=== PATIENT | male | born 1975 | race Caucasian/White ===

== ENCOUNTER 2017-07-10 11:35 | Emergency (ER) | payer BC, OTHER ==
[~2017-07-10] VITALS: Ht 185.4 cm; Wt 137.7 kg
[2017-07-10 11:39] VITALS: TEMP 36.4; Ht 185.4 cm; Wt 137.7 kg
[2017-07-10 12:03] VITALS: O2SAT 96
[2017-07-10] MEDS ORDERED: SODIUM CHLORIDE 0.9% 1000ML 1,000 ML IV STA (12:29)
[2017-07-10] MEDS ORDERED: MoRPHine SULFATE 10 MG/ML CARP/VIAL IV STA (12:29)
[2017-07-10] MEDS ORDERED: ONDANSETRON INJ 2 MG/ML 2 ML VIAL IV STA (12:29)
[2017-07-10] MEDS ORDERED: OPTIRAY 320 IV PRN (12:45)
[2017-07-10 12:51] LABS: BASO % 0.2 %; BASO ABS # 0.03 K/uL (0-0.2); EOS ABS # 0.14 K/uL (0-0.5); HEMATOCRIT 51.2 % (42-52); HEMOGLOBIN 17.7 g/dL (14.0-18.0); IG# 0.05 K/uL (0.00-0.02); LYMPH % 15.3 %; MEAN CELL VOLUME 88.1 fL (80-100); MEAN CORPUSCULAR HEMOGLOBIN 30.5 pg (25-34); MEAN CORPUSCULAR HGB CONC 34.6 g/dl (32-36); MEAN PLATELET VOLUME 10.9 fL (7.4-10.4); MONO % 6.5 %; NEUT % 76.6 %; NEUT ABS # 10.54 K/uL (1.4-6.5); PLATELET COUNT 259 K/uL (130-400); RED CELL DISTRIBUTION WIDTH CV 13.1 % (11.5-14.5); RED CELL DISTRIBUTION WIDTH SD 42.4 fL (36.4-46.3); WHITE BLOOD COUNT 13.76 K/uL (4.8-10.8)
[2017-07-10 13:12] LABS: ALT/SGPT 37 U/L (12-78); BLOOD UREA NITROGEN 16 mg/dl (7-18); CARBON DIOXIDE 27 mmol/L (21-32); CREATININE 0.99 mg/dl (0.60-1.40); GLUCOSE 118 mg/dl (70-99); LIPASE 127 U/L (73-393); POTASSIUM 4.2 mmol/L (3.5-5.1); SODIUM 139 mmol/L (136-145)
[2017-07-10 13:14] LABS: ALKALINE PHOSPHATASE 89 U/L (45-117); AST/SGOT 16 U/L (15-37); TOTAL PROTEIN 7.6 gm/dl (6.4-8.2)
--- NOTE | 2017-07-10 13:48 | DIAGNOSTIC IMAGING REPORT ---
ABD/PELVIS IV CONTRAST ONLY CT DOSE: 2037.64 mGy.cm HISTORY: Pain abd pain in epigastric / diffuse TECHNIQUE: Multiaxial CT images of the abdomen and pelvis were performed following the use of intravenous contrast. A dose lowering technique was utilized adhering to the principles of ALARA. COMPARISON STUDY: 03/12/2008 FINDINGS: The lung bases are clear. The liver, spleen, gallbladder, pancreas, kidneys, and adrenal glands are within normal limits. No bowel wall thickening or obstruction. The pelvic organs are unremarkable. No suspicious lytic or blastic osseous lesions. IMPRESSION: No significant abnormality identified within the abdomen or pelvis. Normal appendix. Nonobstructive bowel pattern The above report was generated using voice recognition software. It may contain grammatical, syntax or spelling errors. Electronically signed by: Yang Clayton M.D. 07/10/2017 1:46 PM Dictated Date/Time: 07/10/2017 1:40 PM
[2017-07-10 16:00] VITALS: BP 151/97; PULSE 62; O2SAT 96
--- NOTE | 2017-07-10 18:09 | EMERGENCY ROOM VISIT NOTE ---
History Report prepared by Gaby: Umm Gan Under the Supervision of: Dr. Mino Valenzuela D.O. First contact with patient: 12:21 Chief Complaint: ABDOMINAL PAIN Stated Complaint: STOMACHE PAIN, BACK PAIN Nursing Triage Summary: Patient presents ambulatory to triage with c/o abdominal pain that began last night States he was at work around 0400 with onset of symptoms C/o upper abdominal pain that radiates to midsternum and back Denies vomiting, diarrhea, nausea History of Present Illness The patient is a 42 year old male who presents to the Emergency Room with complaints of persistent upper abdominal pain starting 0400. He describes the pain as sharp. He currently rates his discomfort as a 5-6/10 in severity. The pain goes into his back. He has never had this pain before. No other exacerbating or remitting factors. He does admit to nausea associated with the pain. No vomiting. No previous abdominal surgeries. He denies any cough, rhinorrhea, chest pain, or headache. He denies any previous abdominal surgeries. He has a history of kidney stone. Source of History: patient Onset: 0400 Position: abdomen (upper) Symptom Intensity: 5-6/10 Quality: sharp Timing: other (persistent) Associated Symptoms: + back pain, No headache, No cough, No chest pain Review of Systems See HPI for pertinent positives & negatives. A total of 10 systems reviewed and were otherwise negative. Past Medical & Surgical Medical Problems: (1) Kidney stone Family History Cancer Social History Smoking Status: Current Some Day Smoker Marital Status: Occupation Status: employed Current/Historical Medications No Active Prescriptions or Reported Meds Allergies Coded Allergies: No Known Allergies (Unverified , 07/10/17) Physical Exam Vital Signs Date Time Temp Pulse Resp B/P (MAP) Pulse Ox O2 Delivery O2 Flow Rate FiO2 07/10/17 16:00 62 16 151/97 96 07/10/17 15:02 60 20 152/97 94 Room Air 07/10/17 13:42 72 16 167/84 97 Room Air 07/10/17 12:09 61 07/10/17 12:05 59 18 165/93 96 Room Air 07/10/17 12:03 96 Room Air 07/10/17 11:39 36.4 59 16 196/115 97 Room Air Physical Exam GENERAL: Sitting up in bed, holding epigastric area, no distress, non-toxic EYE EXAM: normal conjunctiva. OROPHARYNX: no exudate, no erythema, lips, buccal mucosa, and tongue normal and mucous membranes are moist NECK: supple, no nuchal rigidity, no adenopathy, non-tender LUNGS: Clear to auscultation. Normal chest wall mechanics HEART: no murmurs, S1 normal and S2 normal ABDOMEN: abdomen soft, tenderness to palpation in the periumbilical area, normo- active bowel sounds, no masses, no rebound or guarding. BACK: Back is symmetrical on inspection and there is no deformity, no midline tenderness, no CVA tenderness. SKIN: no rashes and no bruising UPPER EXTREMITIES: upper extremities are grossly normal. LOWER EXTREMITIES: No pitting edema. NEURO EXAM: Normal sensorium, cranial nerves II-XII grossly intact, normal speech, no gross weakness of arms, no gross weakness of legs. Medical Decision & Procedures ER Provider Diagnostic Interpretation: Radiology results as stated below per my review and the radiologist's interpretation: ABD/PELVIS IV CONTRAST ONLY CT DOSE: 2037.64 mGy.cm HISTORY: Pain abd pain in epigastric / diffuse TECHNIQUE: Multiaxial CT images of the abdomen and pelvis were performed following the use of intravenous contrast. A dose lowering technique was utilized adhering to the principles of ALARA. COMPARISON STUDY: 03/12/2008 FINDINGS: The lung bases are clear. The liver, spleen, gallbladder, pancreas, kidneys, and adrenal glands are within normal limits. No bowel wall thickening or obstruction. The pelvic organs are unremarkable. No suspicious lytic or blastic osseous lesions. IMPRESSION: No significant abnormality identified within the abdomen or pelvis. Normal appendix. Nonobstructive bowel pattern The above report was generated using voice recognition software. It may contain grammatical, syntax or spelling errors. Electronically signed by: Yang Clayton M.D. 07/10/2017 1:46 PM Dictated Date/Time: 07/10/2017 1:40 PM Laboratory Results 07/10/17 12:01 Red Blood Count 5.81, Mean Corpuscular Volume 88.1, Mean Corpuscular Hemoglobin 30.5, Mean Corpuscular Hemoglobin Concent 34.6, Mean Platelet Volume 10.9, Neutrophils (%) (Auto) 76.6, Lymphocytes (%) (Auto) 15.3, Monocytes (%) (Auto) 6.5, Eosinophils (%) (Auto) 1.0, Basophils (%) (Auto) 0.2, Neutrophils # (Auto) 10.54, Lymphocytes # (Auto) 2.10, Monocytes # (Auto) 0.90, Eosinophils # (Auto) 0.14, Basophils # (Auto) 0.03 07/10/17 12:01 Test 07/10/17 12:01 White Blood Count 13.76 K/uL (4.8-10.8) Red Blood Count 5.81 M/uL (4.7-6.1) Hemoglobin 17.7 g/dL (14.0-18.0) Hematocrit 51.2 % (42-52) Mean Corpuscular Volume 88.1 fL (80-100) Mean Corpuscular Hemoglobin 30.5 pg (25-34) Mean Corpuscular Hemoglobin Concent 34.6 g/dl (32-36) Platelet Count 259 K/uL (130-400) Mean Platelet Volume 10.9 fL (7.4-10.4) Neutrophils (%) (Auto) 76.6 % Lymphocytes (%) (Auto) 15.3 % Monocytes (%) (Auto) 6.5 % Eosinophils (%) (Auto) 1.0 % Basophils (%) (Auto) 0.2 % Neutrophils # (Auto) 10.54 K/uL (1.4-6.5) Lymphocytes # (Auto) 2.10 K/uL (1.2-3.4) Monocytes # (Auto) 0.90 K/uL (0.11-0.59) Eosinophils # (Auto) 0.14 K/uL (0-0.5) Basophils # (Auto) 0.03 K/uL (0-0.2) RDW Standard Deviation 42.4 fL (36.4-46.3) RDW Coefficient of Variation 13.1 % (11.5-14.5) Immature Granulocyte % (Auto) 0.4 % Immature Granulocyte # (Auto) 0.05 K/uL (0.00-0.02) Anion Gap 6.0 mmol/L (3-11) Est Creatinine Clear Calc Drug Dose 138.7 ml/min Estimated GFR () 106.9 Estimated GFR (Non- 92.2 BUN/Creatinine Ratio 16.4 (10-20) Calcium Level 9.0 mg/dl (8.5-10.1) Total Bilirubin 0.4 mg/dl (0.2-1) Direct Bilirubin < 0.1 mg/dl (0-0.2) Aspartate Amino Transf (AST/SGOT) 16 U/L (15-37) Alanine Aminotransferase (ALT/SGPT) 37 U/L (12-78) Alkaline Phosphatase 89 U/L (45-117) Total Protein 7.6 gm/dl (6.4-8.2) Albumin 4.0 gm/dl (3.4-5.0) Lipase 127 U/L (73-393) Laboratory results per my review. Medications Administered Medications (Trade) Dose Ordered Sig/Javier Route Start Time Stop Time Status Last Admin Dose Admin Sodium Chloride 1,000 ml @ 999 mls/hr Q1H1M STAT IV 07/10/17 12:29 07/10/17 13:29 DC 07/10/17 13:00 999 MLS/HR Ondansetron HCl (Zofran Inj) 4 mg NOW STAT IV 07/10/17 12:29 07/10/17 12:30 DC 07/10/17 13:00 4 MG Morphine Sulfate (MoRPHine SULFATE INJ) 6 mg NOW STAT IV 07/10/17 12:29 07/10/17 12:31 DC 07/10/17 13:00 6 MG ECG Per My Interpretation Indication: abdominal pain Rate (beats per minute): 60 Rhythm: sinus rhythm Findings: no ectopy, other (normal axis) ED Course ED COURSE: Vital signs were reviewed and showed hypertension. The patients medical record was reviewed The above diagnostic studies were performed and reviewed. ED treatments and interventions as stated above. 1227: The patient was evaluated in room A9B. A complete history and physical examination was performed. 1229: Morphine Sulfate 6 mg IV, Zofran Inj 4 mg IV, NSS 1000 ml @ 999 mls/hr IV. 1334: Upon reevaluation, the patient is feeling much better. I discussed my findings with the patient and he understands and agrees with the treatment plan. Based on the patients age, coexisting illnesses, exam and lab findings the decision to treat as an outpatient was made. The patient remained stable while under my care. The patient appeared well at the time of discharge. Medical Decision Differential diagnoses includes but is not limited to gastritis, peptic ulcer disease, GERD, gallbladder disease, pancreatitis, small bowel obstruction, acute coronary syndrome, pericarditis, ischemic bowel, irritable bowel disease, irritable bowel syndrome, appendicitis, diverticulitis, malignancy, hernia, urinary tract infection, torsion, perforation, trauma, infectious. Patient is a 42-year-old male that presents to ER for epigastric/periumbilical abdominal pain which is reproducible on exam. Labs show a mild leukocytosis at 13,000. BMP along with LFTs, bilirubin and lipase is unremarkable. CT of the abdomen pelvis was unremarkable. Patient was given IV fluids and IV narcotics. He did feel significant better. EKG was obtained and was unremarkable. Do not believe this is cardiac. He was updated at bedside. He was discharged follow-up with PCP as an outpatient. discussed with Pt concerning signs and symptoms to watch out for. Pt was instructed to follow up with their PCP and discussed with the patient their option to return to the ED at anytime for persistent or worsening symptoms. The appropriate anticipatory guidance and out- patient management, including indications for return to the emergency department , were explained at length to the patient and understood. Medication Reconcilliation Current Medication List: was personally reviewed by me Blood Pressure Screening Patient's blood pressure: Elevated blood pressure Blood pressure disposition: Referred to PCP Impression Primary Impression: Abdominal pain Scribe Attestation The scribe's documentation has been prepared under my direction and personally reviewed by me in its entirety. I confirm that the note above accurately reflects all work, treatment, procedures, and medical decision making performed by me. Departure Information Dispostion Home / Self-Care Prescriptions No Active Prescriptions or Reported Meds Referrals Ulices Navarrete Forms Call Back Authorization, HOME CARE DOCUMENTATION FORM, IMPORTANT VISIT INFORMATION Patient Instructions Abdominal Pain - [facility], My [facility] Additional Instructions Please follow up with your primary care doctor with in the next 24 hours. Any worsening of your symptoms, please return to the ED immediately. This includes any fevers greater than 100.4, worsening pain, chest pain, shortness breath, persistent nausea, vomiting, unable to eat or drink, or any other concerning signs or symptoms from your standpoint. Please take Tylenol as needed for pain. Problem Qualifiers Primary Impression: Abdominal pain Abdominal location: unspecified location Qualified Codes: R10.9 - Unspecified abdominal pain
== END 2017-07-10 16:00 | disposition home or self-care (01) ==
LOC: C.EDB 11:36 → C.EDA 16:00
DX: R10.10 Upper abdominal pain, unspecified (principal); R11.0 Nausea; R03.0 Elevated blood-pressure reading, without diagnosis of hypertension; D72.829 Elevated white blood cell count, unspecified; Z87.442 Personal history of urinary calculi; F17.200 Nicotine dependence, unspecified, uncomplicated

== ENCOUNTER 2023-08-06 12:28 | Inpatient (IN) ==
--- OUTSIDE RECORDS SUMMARY | 2023-08-06 12:33 | External Medical Summary | Summary of Care ---
Author Name Unknown Organization [facility] Address [address] [place] [address] Phone [phone] Care Team Providers Care Revenue Cycle Administrator Name Role Phone Kristopher Lynch PA-C Primary Care Provider [phone] Reason for Referral * Evaluate & Treat - Unlimited Visits (Within 10 days (routine)) - Pending Review Specialty Diagnoses / Procedures Referred By [address] Referred To Contact Pharmacist / Pharmacy Diagnoses Type 2 diabetes mellitus with hemoglobin A1c goal of less than 7.0% ([facility]) Kristopher Lynch PA-C [address] [place] [address] Referral ID Status Reason Start Date Expiration Date Visits Requested Visits Authorized [id number] Pending Review Specialty Services Required 07/11/2023 99 [phone] Question Answer Referral Priority Within 10 days (routine) Where should this appointment be scheduled? [facility] Referring Provider Role: Primary Care Reason for Referral: DM Target A1c: < 7 Comments Pharmacist Medication Therapy Management: Minimum frequency patient should be seen in person for medication management: as appropriate per clinical condition and patient status By my signature, I understand that my patient Eugene Garcia II will have his medication therapy managed by the [facility] Medication Therapy [facility] ([facility]) per established policies, procedures, and protocols. I also certify that this referral may serve as an initiation of service for the management of drug therapy in the above noted patient. [facility] providers will be responsible for scheduling patient visits, obtaining appropriate laboratory studies, and adjusting medication management therapy per patient's need, in addition to those roles spelled out in the clinic policy, procedures, and drug management protocols. I understand that the service provided by the [facility] is voluntary and have informed patient that they can refuse the service at their discretion. I am aware that the [facility] will provide me with a copy of the patient encounter via my [employer]. I authorize the [facility] to carry out these activities on my behalf. I consider this program to be a necessary part of the patient's medical care. Kristopher Lynch PA-C Reason for Visit * Reason Onset Date Comments Acute Patient is here with complaints of numbness in his feet for the past 6 months.He also states that within the past week he can't cath his breathe if he thinks about his breathing. Immunizations 07/11/2023 Encounter Details Date Type Department Care Team ([facility] Contact Info) Description 07/11/2023 2:00 PM EDT Office Visit [address] [phone] Kristopher Lynch PA-C [address] [place] [phone] Type 2 diabetes mellitus with hemoglobin A1c goal of less than 7.0% ([facility])*; Special screening for malignant neoplasms, colon; Need for wafduximtw-jytxjto-tl rtussis (Tdap) vaccine; Elevated glucose; Numbness and tingling of both feet Allergies No known active allergiesdocumented as of this encounter (statuses as of 07/11/2023) Medications Medication Sig Dispensed Refills Start Date End Date Status metFORMIN HCl ER 500 MG Oral Tablet Extended Release 24 Hour (Glucophage XR) Take 1 Tablet by mouth in the morning. 90 Tablet 3 07/11/2023 Active documented as of this encounter (statuses as of 07/11/2023) Active Problems Problem Noted Date Diagnosed Date ADVANCE DIRECTIVE INFORMATION 06/22/2005 Overview: No, Advance Directive brochure given to patient. documented as of this encounter (statuses as of 07/11/2023) Immunizations Name Administration Dates Next Due TDAP (age 10 and older)(Boostrix) 07/11/2023 documented as of this encounter Social History Tobacco Use Types Packs/Day Years Used Date Smoking Tobacco: Every Day Cigarettes 1 10 Smokeless Tobacco: Former Snuff Tobacco Cessation:Ready to Q uit: Not Asked; Counseling Given: Not Answered Alcohol Use Standard Drinks/Week Comments Yes 0 (1 standard drink = 0.6 oz pur e alcohol) Occasionally Sex and Gender Information Value Date Recorded Sex Assigned at Not on file Gender Identity Not on file Sexual Orientation Not on file Job Start Date Occupation Industry Not on file Not on file Not on file documented as of this encounter Last Filed Vital Signs Vital Sign Reading Time Taken Comments Blood Pressure 118/70 07/11/2023 1:53 PM EDT Pulse 78 07/11/2023 1:53 PM EDT Temperature 36.7 C (98.1 F) 07/11/2023 1:53 PM ED T Respiratory Rate 18 07/11/2023 1:53 PM EDT Oxygen Saturation 97% 07/11/2023 1:53 PM EDT Inhaled Oxygen Concentration - - Weight 128.4 kg (283 lb) 07/11/2023 1:53 PM EDT Height - - Body Mass Index 37.85 08/16/2022 8:00 AM EDT documented in this encounter Patient Instructions * Patient Instructions* Kira Bautista LPN - 07/11/2023 1:56 PM EDT Images from the original note were not included. Colorectal Cancer Screening Colorectal cancer (cancer in the colon or rectum) is a leading cause of cancer deaths in the [place] But it doesnt have to be. When this cancer is found and removed early, the chances of a full recovery are very good. Because colorectal cancer rarely causes symptoms in its early stages, screening for the disease is important. Its even more crucial if you have risk factors for the disease. Learn more about colorectal cancer and its risk factors. Then talk to your healthcare provider about being screened. You could be saving your own life. Risk factors for colorectal cancer Your risk of having colorectal cancer increases if you: Are 50 years of age or older Have a family history or personal history of colorectal cancer or polyps Have a personal history of type 2 diabetes, Crohns disease, or ulcerative colitis Have an inherited genetic syndrome like Norman syndrome (also known as HNPCC) or familial adenomatous polyposis (FAP) Are very overweight Are not physically active Smoke Drink a lot of alcohol Eat a lot of red or processed meat The colon and rectum Waste from food you eat enters the colon from the small intestine. As it travels through the colon,the waste (stool) loses water and becomes more solid. Intestinal muscles push it toward the sigmoid--the last section of the colon. Stool then moves into the rectum, where its stored until its ready to leave the body during a bowel movement. How cancer develops Polyps are growths that form on the inner lining of the colon or rectum. Most are benign, which means they arent cancerous. But over time, some polyps can become cancer (malignant). This happens when cells in these polyps begin growing abnormally. In time, malignant cells invade more and more ofthe colon and rectum. The cancer may also spread to nearby organs or lymph nodes or to other parts of the body. Finding and removing polyps can help prevent cancer from ever forming. Your screening Screening means looking for a health problem before you have symptoms. During screening for colorectal cancer, your healthcare provider will ask about your health history, examine you, and do one or more tests. History and exam The history and exam involve the following: Health history. Your healthcare provider will ask about your health history. Mention if a family member has had colon cancer or polyps. Also mention any health problems you have had in the past. Digital rectal exam (JOJO). During a JOJO, the healthcare provider inserts a lubricated gloved fingerinto the rectum. The test is painless and takes less than a minute. Healthcare providers agree thatthis test alone is not enough to screen for colorectal cancer. Screening test choices: Fecal occult blood test (FOBT) or fecal immunochemical test (FIT) These tests check for occult blood in stool (blood you cant see). Hidden blood may be a sign of colon polyps or cancer. A small sample of stool is tested for blood in a laboratory. Most often, youcollect this sample at home using a kit your healthcare provider gives you. Follow the instructionscarefully for using this kit. You might need to avoid certain foods and medicines before the test, as directed. Barium enema with contrast (double-contrast barium enema) This test uses X-rays to provide images of the entire colon and rectum. The day before this test, you will need to do a bowel prep to clean out the colon and rectum. A bowel prep is a liquid diet plus strong laxatives or enemas. You will be awake for the test, but you may be given medicine to help you relax. At the start of the test, a radiologist (a healthcare provider who specializes in imagingtests) places a soft tube into the rectum. The tube is used to fill the colon with a contrast liquid (barium) and air. This can be uncomfortable for some people. The liquid helps the colon show up clearly on the X-rays. Because the test uses X-rays, it exposes you to a small amount of radiation. Virtual colonoscopy This exam is also called a CT colonography. It uses a series of X-ray photographs to create a 3-D view of the colon and rectum. The day before the test, you will need to do a bowel prep to clean out your colon. Your healthcare provider will give you instructions on how to do this. During the procedure, you will lie on a table that is part of a special X-ray machine called a CT scanner. A small tube will be placed into your rectum to fill the colon and rectum with air. This can be uncomfortable for some people. Then, the table will move into the machine and pictures will be taken of your colonand rectum. A computer will combine these photos to create a 3-D picture. Because the test uses X-rays, it exposes you to a small amount of radiation. Cologuard Cologuard is an easy to use, noninvasive colon cancer screening test that you can use in the privacy of your own home. It identifies altered DNA and/or blood in stool, which are associated with the possibility of colon cancer or precancer. DNA is continuously shed from cells in the intestinal lining, where it is passed into the stool. Ifcancer or precancer is present, abnormal cells will shed into the colon and stool along with normalcells. A molecular biology process is used to capture specific pieces of DNA for further analysis. Scope exams Here are two types of scope exams: Colonoscopy. This test can be used to find and remove polyps anywhere in the colon or rectum. The day before the test, you will do a bowel prep. This is a liquid diet plus a strong laxative solution or an enema. The bowel prep will cleanse your colon. You will be given instructions for this. Just before the test, you are given a medicine to make you sleepy. Then, a long, flexible, lighted tube called a colonoscope is gently inserted into the rectum and guided through the entire colon. Images ofthe colon are viewed on a video screen. Any polyps that are found are removed and sent to a lab fortesting. If a polyp cant be removed, a sample of tissue is taken and the polyp might be removed l ater during surgery. You will need to bring someone with you to drive you home after this test. Sigmoidoscopy. This test is similar to colonoscopy, but focuses only on the sigmoid colon and rectum. As with colonoscopy, bowel prep must be done the day before this test. It might not need to be ascomplete as the bowel prep for a colonoscopy. You are awake during the procedure, but you may be given medicine to help you relax. During the test, the healthcare provider guides a thin, flexible, lighted tube called a sigmoidoscope through your rectum and lower colon. The images are displayed on avideo screen. Polyps are removed, if possible, and sent to a lab for testing. Colonoscopy is the only screening test that lets your healthcare provider see the entire colon and rectum. This test also lets your healthcare provider remove any pieces of tissue that need to be looked at by a lab. If something suspicious is found using any other tests, you will likely need a colonoscopy. When to call your healthcare provider after a test Call your healthcare provider if you have any of the following after any screening test: Bleeding Fever of 100.4F (38C) or higher, or as directed by your healthcare provider Abdominal pain Vomiting Date Last Reviewed: 02/25/201519992908-9620 [employer]. [address] [place] [id number]. All rights reserved. This information is not intended as a substitute for professional medical care. Always follow your healthcare professional's instructions. ~~PATIENT INSTRUCTIONS FOR TDAP VACCINE~~ Possible side effects of TDAP vaccine, (tetanus shot), are usually mild and can include: 1. Soreness or redness at injection site 2. Low grade fever 3. Body aches You may use a fever / pain reducing medication as needed for these symptoms. LET YOUR DOCTOR KNOW IMMEDIATELY IF YOU HAVE DIFFICULTY BREATHING OR SWALLOWING, EXPERIENCE ITCHINGOF FEET OR HANDS, HAVE SWELLING OF EYES, FACE OR INSIDE OF NOSE. documented in this encounter Progress Notes * Kristopher Lynch PA-C - 07/11/2023 3:29 PM EDT Images from the original note were not included. History of Present Illness Eugene Garcia II is a 48 year old male that presents for Acute (Patient is here with complaintsof numbness in his feet for the past 6 months./He also states that within the past week he can't cath his breathe if he thinks about his breathing. ) and Immunizations He presents today because he has noticed numbness and tingling of both feet for the past 6 months. He also tells me that if he things about his breathing he feels like he can't catch his breath, but isn't ready to discuss this today. He thinks he knows what is going on and can fix it. Physical Exam Vitals: 07/11/23 1353 Temp: 36.7 C (98.1 F) Pulse: 78 Resp: 18 SpO2: 97% BP: 118/70 General: alert and no distress Neuro Exam: Both Feet: decreased sensations, and varying sensation of both feet to light touch as compared to the lower leg. I have reviewed the following results: HGBA1C Assessment and Plan Type 2 diabetes mellitus with hemoglobin A1c goal of less than 7.0% (HCC) His A1C is 10.9. We discussed diabetes. Metformin 500 mg was started, and he was referred to [facility]. - PHARMACIST MEDS THERAPY MGMT REFERRAL OP Special screening for malignant neoplasms, colon - COLOGUARD Need for eunxhukdcu-nkwxqcv-dmmyjwoqb (Tdap) vaccine - TDAP (AGE 10 AND OLDER)(BOOSTRIX) Elevated glucose - HEMOGLOBIN A1C, POINT OF CARE Numbness and tingling of both feet Wrap-Up Follow Up: Return in about 4 months (around 11/10/2023) for Follow up with labs prior. | For: Followup with labs prior Kristopher Lynch PA-C documented in this encounter Nursing Notes * Kira Bautista LPN - 07/11/2023 1:55 PM EDT The patient has been properly identified by confirmation of name and date of . Chief Complaint Patient presents with Acute Patient is here with complaints of numbness in his feet for the past 6 months. He also states that within the past week he can't cath his breathe if he thinks about his breathing. documented in this encounter Plan of Treatment Upcoming Encounters Date Type Department Care Team ([facility] st Contact Info) Description 07/20/2023 9:20 AM EDT Office Visit Pharmacy [address] [phone] Pharmacist2, [facility] [address] [address] 11/15/2023 8:40 AM EDT Office Visit Family [address] [phone] Kristopher Lynch PA-C [address] [place] [phone] Scheduled Orders Name Type Priority Associated Diagnoses Orde r Schedule COLOGUARD Lab Unrestricted Lab Special screening for malignant neoplasms, colon Ordered: 07/11/2023 COMPREHENSIVE METABOLIC PANEL Lab Routine Type 2 diabetes mellitus with hemoglobin A1c goal of less than 7.0% (HCC) Expected: 07/11/2023 (Approximate), Expires: 07/10/2024 HEMOGLOBIN A1C Lab Routine Type 2 diabetes mellitus with hemoglobin A1c goal of less than 7.0% (HCC) Expected: 07/11/2023 (Approximate), Expires: 07/10/2024 LIPID PANEL WITH DIRECT LDL IF TG IS HIGH Lab Routine Type 2 diabetes mellitus with hemoglobin A1c goal of less than 7.0% (HCC) Expected: 07/11/2023 (Approximate), Expires: 07/10/2024 VITAMIN B12 Lab Routine Type 2 diabetes mellitus with hemoglobin A1c goal of less than 7.0% (HCC) Expected: 07/12/2023, Expires: 07/10/2024 Scheduled Referrals Name Type Priority Associated Diagnoses Orde r Schedule PHARMACIST MEDS THERAPY MGMT REFERRAL OP Referral Within 10 days (routine) Type 2 diabetes mellitus with hemoglobin A1c goal of less than 7.0% (HCC) Ordered: 07/11/2023 Health Maintenance Due Date Last Done Comments Pneumococcal Vaccine: Pediatrics (0 to 5 Years) and At-Risk Patients (6 to 64 Years) (1 of 2 - PCV) 1979 Depression Screening 1985 HIV Screening 1988 Hepatitis C Screening 1991 Hepatitis B (1 of 3 - 19+ 3-dose series) 1992 Cologuard 2018 Colonoscopy 2018 Colorectal Cancer Screening 2018 Fecal Occult Blood Test 2018 Sigmoidoscopy 2018 COVID-19 Vaccine (3 - 2022-2 4 season) 2022 09/23/2020, 09/02/2020 Influenza Vaccine (FLU shot) (#1) 2022 Zoster Vaccines (1 of 2) 2023 Diabetes Screening 07/10/2026 07/11/2023, 08/17/2022, 03/26/1998 Lipid Panel 08/18/2027 08/17/2022, 03/26/1998 DTaP,Tdap,and Td Vaccines (2 - Td or Tdap) 07/10/2033 07/11/2023 GARDASIL-HPV IMMUNIZATION SERIES Aged Out No longer eligible b ased on patient's age to complete this topic MENINGOCOCCAL (MENACTRA/MENVEO) Aged Out No longer eligible b ased on patient's age to complete this topic documented as of this encounter Medical Devices Not on filedocumented as of this encounter Procedures Procedure Name Priority Date/Time Associated Diagnosis Comments HEMOGLOBIN A1C, POINT OF CARE Routine 07/11/2023 1:55 PM EDT Elevated glucose documented in this encounter Results * (ABNORMAL) HEMOGLOBIN A1C, POINT OF CARE (07/11/2023 1:55 PM EDT) Hemoglobin A1c 10.9(H) 4.0 - 5.6 % 07/11/2023 2:55 PM EDT LABORATORY [facility] 6086 Blood 07/11/2023 1:55 PM EDT 07/11/2023 2:55 PM EDT Kristopher Lynch PA-C LAB POINT OF CARE T EST DOCKED DEVICE UNSOLICITED RESULTS [facility] [address] [place] [id number] documented in this encounter Visit Diagnoses Diagnosis Type 2 diabetes mellitus with hemoglobin A1c goal of less than 7.0% (HCC)- Primary Special screening for malignant neoplasms, colon Need for clhrsjbwyg-wmamqpb-unvteciip (Tdap) vaccine Need for prophylactic vaccination with combined wybfnhuqii-hywqwpk-hceimrlnb (DTP) vaccine Elevated glucose Other abnormal glucose Numbness and tingling of both feet documented in this encounter Care Teams Revenue Cycle Administrator Relationship Specialty Start Date End Date Kristopher Lynch PA-C [address] [place] [id number] PCP - General Physician Aircraft Powerplant Repairer 08/16/22 documented as of this encounter"
--- OUTSIDE RECORDS SUMMARY | 2023-08-06 12:33 | External Medical Summary | Summary of Care ---
Author Name Unknown Organization [facility] Address [address] [place] [address] Phone [phone] Care Team Providers Care Engineering Recruiter Name Role Phone Kristopher Lynch PA-C Primary Care Provider [phone] Reason for Visit * Reason Comments Dosage Adjustment In Person (Anticoag Cl inic) Diabetes Management * Evaluate & Treat - Unlimited Visits (Within 10 days (routine)) - Pending Review Specialty Diagnoses / Procedures Referred By [address] street Referred To Contact Pharmacist / Pharmacy Diagnoses Type 2 diabetes mellitus with hemoglobin A1c goal of less than 7.0% (HCC) Kristopher Lynch PA-C [address] [place] [address] Referral ID Status Reason Start Date Expiration Date Visits Requested Visits Authorized [id number] Pending Review Specialty Services Required 07/11/[phone] Encounter Details Date Type Department Care Team ([facility] st Contact Info) Description 07/24/2023 9:10 AM EDT Office Visit Pharmacy, [facility] [place] [address] [facility] [place] [address] Pharmacist2, [facility] [address] [facility] [place] [address] Type 2 diabetes mellitus with hemoglobin A1c goal of less than 7.0% ([facility])* Allergies No known active allergiesdocumented as of this encounter (statuses as of 07/24/2023) Medications Medication Sig Dispensed Refills Start Date End Date Status Dexcom G7 SensorIndications :Type 2 diabetes mellitus with hemoglobin A1c goal of less than 7.0% (HCC) Replace Sensor Every 10 Days. 9 Each 3 07/24/2023 Active metFORMIN HCl ER 500 MG Oral Tablet Extended Release 24 Hour (Glucophage XR)Indications:Ty pe 2 diabetes mellitus with hemoglobin A1c goal of less than 7.0% (HCC) Take 1 Tablet by mouth in the morning. 90 Tablet 3 07/24/2023 Active OneTouch Verio In Vitro Strip (Glucose Blood)Indications :Type 2 diabetes mellitus with hemoglobin A1c goal of less than 7.0% (HCC) Use to check blood sugar up to 1 times daily. E11.9 100 Strip 3 07/24/2023 Active OneTouch Delica Lancets 33GIndications:Ty pe 2 diabetes mellitus with hemoglobin A1c goal of less than 7.0% (HCC) Use to check blood sugar up to 1 times daily. E11.9 100 Each 3 07/24/2023 Active OneTouch Verio Reflect w/Device KitIndications:Ty pe 2 diabetes mellitus with hemoglobin A1c goal of less than 7.0% (HCC) Use as directed. Use to check blood sugar up to 1 times daily. E11.9 1 Kit 0 07/24/2023 Active metFORMIN HCl ER 500 MG Oral Tablet Extended Release 24 Hour (Glucophage XR) Take 1 Tablet by mouth in the morning. 90 Tablet 3 07/11/2023 07/24/2023 Discontinued (Refill) documented as of this encounter (statuses as of 07/24/2023) Active Problems Problem Noted Date Diagnosed Date Type 2 diabetes mellitus wit h hemoglobin A1c goal of less than 7.0% 07/24/2023 ADVANCE DIRECTIVE INFORMATION 06/22/2005 Overview: No, Advance Directive brochure given to patient. documented as of this encounter (statuses as of 07/24/2023) Immunizations Name Administration Dates Next Due TDAP (age 10 and older)(Boostrix) 07/11/2023 documented as of this encounter Social History Tobacco Use Types Packs/Day Years Used Date Smoking Tobacco: Every Day Cigarettes 1 10 Smokeless Tobacco: Former Snuff Alcohol Use Standard Drinks/Week Comments Yes 0 (1 standard drink = 0.6 oz pur e alcohol) Occasionally Sex and Gender Information Value Date Recorded Sex Assigned at Not on file Gender Identity Not on file Sexual Orientation Not on file Job Start Date Occupation Industry Not on file Not on file Not on file documented as of this encounter Progress Notes * Nicho Guaman, [facility] - 07/24/2023 9:12 AM EDT Medication Therapy Disease Management Clinic - Diabetes Management Progress Note Eugene Garcia II, identified by name and date of , is a 48 year old male being seen for diabetes management/education. Patient presents for initial diabetic visit. Past Medical History: Diagnosis Date NO KNOWN PROBLEMS Diagnosis: Type 2 Age of diabetes diagnosis: 48 yo Family history of diabetes: Denies Microvascular complications: neuropathy Macrovascular complications: none History of Treatment Barriers: Lifestyle: 3rd Shift Therapy considerations: None Medication: N/A DIABETES: Current diabetic medications: Metformin ER 500mg 1 tab QAM Medication Injection Site: N/A Lifestyle: Diet: Reviewed plate method and effect of certain foods on BG. Also reviewed food label, focusing on "total carbohydrates" and "serving size." Patient verbalized understanding. Glucose Review/SMBG: Readings per patient memory/recall: Patient is currently testing 0 times a day Hypoglycemia: Does your blood sugar go below 70 mg/dL? No Hyperglycemia symptoms present: none Recent Labs Units 07/11/23 1355 HEMOGLOBIN A1C POCT - [facility] % 10.9* Recent Labs Units 08/17/22 0709 ESTIMATED GLOMERULAR FILTRATION RATE - [facility] mL/min >90 CREATININE - [facility] mg/dL 0.8 HYPERTENSION: Patient on ACEi/ARB: no, BP controlled BP Readings from Last 3 Encounters: 07/11/23 118/70 08/16/22 124/84 11/15/07 132/80 Blood pressure at goal: yes HYPERLIPIDEMIA: Patient is taking moderate or high intensity statin: No, given multiple medication and lifestyle changes today will postpone statin initiation to the next visit. Patient made aware of the need to start a statin and agreeable to start at the next visit. HEALTH MAINTENANCE REVIEW: Health Maintenance Due Topic Date Due DISCUSS TOBACCO CESSATION (REFER TO SMARTSET #8814) Never done Pneumococcal Vaccine: Pediatrics (0 to 5 Years) and At-Risk Patients (6 to 64 Years) (1 of 2 - PCV)Never done Depression Screening Never done HIV Screening Never done Diabetic Eye Exam Never done Albumin/Creatinine Ratio Never done Diabetic Foot Exam Never done Hepatitis C Screening Never done Hepatitis B (1 of 3 - 19+ 3-dose series) Never done COVID-19 Vaccine (2022-24 season) 2022 Zoster Vaccines (1 of 2) Never done ASSESSMENT & PLAN: ICD-10-CM 1. Type 2 diabetes mellitus with hemoglobin A1c goal of less than 7.0% (HCC) E11.9 BG Readings - Blood sugars controlled. 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 Medications - Reviewed current regimen, patient is adherent to regimen. Pt agreeable to increase metformin to goal dose of 1000mg BID (was tolerating 500mg once daily without issue). Diet, Exercise, Lifestyle - No significant lifestyle changes since last visit. Patient is agreeable to SMBG 1-4 time(s) daily. Patient aware to contact clinic if any hypoglycemia before next visit. MEDICATION CHANGES: yes, see below; preferred pharmacy: [facility]) Diabetic Medications: INC: Metformin ER 500mg 2 tabs BID HEALTH MAINTENANCE INTERVENTIONS: Labs: Up to Date Immunizations: Due for multiple vaccines Foot Exam: Up to Date Eye Exam: Due Annual Wellness Visit: N/A FOLLOW UP: Return to clinic in 10 weeks 10/09/2023 Nicho Guaman [facility] Clinical Pharmacist - Principal Android Developer Medication Therapy Management Clinic 07/24/2023, 9:12 AM documented in this encounter Plan of Treatment Upcoming Encounters Date Type Department Care Team ([facility] st Contact Info) Description 08/07/2023 3:00 PM EDT Office Visit Pharmacy [address] [place] [phone] Pharmacist2, [facility] [address] [place] [address] 10/09/2023 8:00 AM EDT [facility] [place] [place] [address] Pharmacist2, [facility] Sp [address] [place], [place] [address] 11/15/2023 8:40 AM EDT Office Visit [facility] [address] [place] [phone] Kristopher Lynch PA-C [address] [place] [address] Health Maintenance Due Date Last Done Comments DISCUSS TOBACCO CESSATION (REFER TO SMARTSET #[id number]) 1973 Pneumococcal Vaccine: Pediatrics (0 to 5 Years) and At-Risk Patients (6 to 64 Years) (1 of 2 - PCV) 1979 Depression Screening 1985 HIV Screening 1988 Albumin/Creatinine Ratio 1991 Diabetic Eye Exam 1991 Diabetic Foot Exam 1991 Hepatitis C Screening 1991 Hepatitis B (1 of 3 - 19+ 3-dose series) 1992 Colonoscopy 2018 Fecal Occult Blood Test 2018 Sigmoidoscopy 2018 COVID-19 Vaccine (3 - 2022-2 4 season) 2022 09/23/2020, 09/02/2020 Zoster Vaccines (1 of 2) 2023 GFR 08/18/2023 08/17/2022, 03/26/1998 Influenza Vaccine (FLU shot) (Season Ended) 2023 HbA1c 01/11/2024 07/11/2023 Cologuard 07/20/2026 07/21/2023, 07/16/2023, 07/16/2023 Colorectal Cancer Screening 07/20/2026 Lipid Panel 08/18/2027 08/17/2022, 03/26/1998 DTaP,Tdap,and Td Vaccines (2 - Td or Tdap) 07/10/2033 07/11/2023 GARDASIL-HPV IMMUNIZATION SERIES Aged Out No longer eligible b ased on patient's age to complete this topic MENINGOCOCCAL (MENACTRA/MENVEO) Aged Out No longer eligible b ased on patient's age to complete this topic documented as of this encounter Medical Devices Not on filedocumented as of this encounter Visit Diagnoses Diagnosis Type 2 diabetes mellitus with hemoglobin A1c goal of less than 7.0% (HCC)- Primary documented in this encounter Care Teams Engineering Recruiter Relationship Specialty Start Date End Date Kristopher Lynch PA-C [address] [place] [address] [phone] PCP - General Physician Unit Receptionist 08/16/22 documented as of this encounter
--- OUTSIDE RECORDS SUMMARY | 2023-08-06 12:33 | External Medical Summary | Summary of Care ---
Author Name Unknown Organization [facility] [address] [facility] [place] [address] Phone [phone] Care Team Providers Care Supervisor Channel Process Name Role Phone Kristopher Lynch PA-C Primary Care Provider [phone] Encounter Details Date Type Department Care Team (Late st Contact Info) Description 07/18/2023 Orders Only PATIENT PORTAL DO NOT DELETE THIS DEPT USED BY [place] F[place]ES [id number] Allergies No known active allergiesdocumented as of this encounter (statuses as of 07/18/2023) Medications Medication Sig Dispensed Refills Start Date End Date Status metFORMIN HCl ER 500 MG Oral Tablet Extended Release 24 Hour (Glucophage XR) Take 1 Tablet by mouth in the morning. 90 Tablet 3 07/11/2023 Active documented as of this encounter (statuses as of 07/18/2023) Active Problems Problem Noted Date Diagnosed Date ADVANCE DIRECTIVE INFORMATION 06/22/2005 Overview: No, Advance Directive brochure given to patient. documented as of this encounter (statuses as of 07/18/2023) Immunizations Name Administration Dates Next Due TDAP [...] on file documented as of this encounter Plan of Treatment Upcoming Encounters Date Type Department Care Team ([facility] Contact Info) Description 07/20/2023 9:20 AM EDT Office Visit Pharmacy [address] [phone] Pharmacist2[facility] [place] [address] [place] [address] 11/15/2023 8:40 AM EDT Office Visit Family Practice [address] [phone] Kristopher Lynch PA-C [address] [place] [address] [phone] Health Maintenance Due Date Last Done Comments [...] Not on filedocumented as of this encounter Care Teams Supervisor Channel Process Relationship Specialty Start Date End Date Kristopher Lynch PA-C [address] [place] [address] [phone] PCP - General Physician Kettle Worker 08/16/22 documented as of this encounter
--- OUTSIDE RECORDS SUMMARY | 2023-08-06 12:33 | External Medical Summary | Summary of Care ---
Author Name Unknown Organization [facility] Address [address] [place] [address] Phone [phone] Care Team Providers Care Metalizer Field Operation Name Role Phone LynchKristopher pool Neel FERNANDO Primary Care Provider [phone] Reason for Visit * Reason Onset Date Comments MyCode Consent 07/11/2023 Encounter Details Date Type Department Care Team (Late st Contact Info) Description 07/11/2023 Orders Only Outcomes Research Department [address] [place] [address] Lyly Vargas CHRA MyCode Research Other*[id number]* Allergies No known active allergiesdocumented as of this encounter (statuses as of 07/11/2023) Medications No known medicationsdocumented as of this encounter (statuses as of 07/11/2023) Active Problems Problem Noted Date Diagnosed Date ADVANCE DIRECTIVE INFORMATION 06/22/2005 Overview: No, Advance Directive brochure given to patient. documented as of this encounter (statuses as of 07/11/2023) Immunizations No known immunizationsdocumented as of this encounter Social History Tobacco [...] as of this encounter Progress Notes * Lyly Vargas CHRA - 07/11/2023 1:53 PM EDT MyCode Consent Documentation Eugene Garcia II provided consent/authorization to participate in the MyCode Project. documented in this encounter Plan of Treatment Scheduled Orders Name Type Priority Associated Diagnoses Orde r Schedule MYCODE INITIAL ADULT Lab Routine MyCode Research Other*[id number] Expected: 07/11/2023 (Approximate), Expires: 07/30/2024 Health Maintenance Due Date Last Done Comments Pneumococcal Vaccine: Pediatrics (0 to 5 Years) and At-Risk Patients (6 to 64 Years) (1 of 2 - PCV) 1979 Depression Screening 1985 HIV Screening 1988 Hepatitis C Screening 1991 DTaP,Tdap,and Td Vaccines (1 - Tdap) 1992 Hepatitis B (1 of 3 - 19+ 3-dose series) 1992 Cologuard 2018 Colonoscopy 2018 Colorectal Cancer Screening 2018 Fecal Occult Blood Test 2018 Sigmoidoscopy 2018 COVID-19 Vaccine (3 - 2022-2 4 season) 2022 09/23/2020, 09/02/2020 Influenza Vaccine (FLU shot) (#1) 2022 Zoster Vaccines (1 of 2) 2023 Diabetes Screening 08/17/2025 08/17/2022, 03/26/1998 Lipid Panel 08/18/2027 08/17/2022, 03/26/1998 GARDASIL-HPV IMMUNIZATION SERIES Aged Out No longer eligible b ased on patient's age to complete this topic MENINGOCOCCAL (MENACTRA/MENVEO) Aged Out No longer eligible b ased on patient's age to complete this topic documented as of this encounter Medical Devices Not on filedocumented as of this encounter Visit Diagnoses Diagnosis MyCode Research Other*[id number]- Primary documented in this encounter Care Teams Metalizer Field Operation Relationship Specialty Start Date End Date Kristopher Lynch PA-C [address] [place] [phone] PCP - General Physician Medical Writer 08/16/22 documented as of this encounter
--- OUTSIDE RECORDS SUMMARY | 2023-08-06 12:33 | External Medical Summary | Summary of Care ---
Author Name Unknown Organization [facility] Address [address] [place] [address] Phone [phone] Care Team Providers Care Healthcare Facility Administrator Name Role Phone Kristopher Lynch PA-C Primary Care Provider [phone] Reason for Visit * Reason Onset Date Comments Appointment 07/20/2023 Encounter Details Date Type Department Care Team (Late st Contact Info) Description 07/20/2023 Telephone Pharmacy, [facility] [address] [place] [address] Pharmacist2, [facility] [address] [place] [address] Appointment Allergies No known active allergiesdocumented as of this encounter (statuses as of 07/20/2023) Medications Medication Sig Dispensed Refills Start Date End Date Status metFORMIN HCl ER 500 MG Oral Tablet Extended Release 24 Hour (Glucophage XR) Take 1 Tablet by mouth in the morning. 90 Tablet 3 07/11/2023 Active documented as of this encounter (statuses as of 07/20/2023) Active Problems Problem Noted Date Diagnosed Date ADVANCE DIRECTIVE INFORMATION 06/22/2005 Overview: No, Advance Directive brochure given to patient. documented as of this encounter (statuses as of 07/20/2023) Immunizations Name Administration Dates Next Due TDAP [...] on file documented as of this encounter Miscellaneous Notes * Telephone Encounter - Nicho Guaman [facility] - 07/20/2023 7:54 AM EDT Patient Phone Numbers Patient rescheduled for 07/24/23 on SP2 schedule. Nicho Guaman PharmD, BCACP, [facility] Clinical Pharmacist 07/20/2023, 7:54 AM * Telephone Encounter - Arsh Rosas PHARM Tech - 07/20/2023 7:16 AM EDT Patient Phone Numbers Called patient to reschedule new dm apt for today 07/19 due to [facility] call off. Patient and are very concerned because PCP told them he needed seen JOYCE due to his levels. I scheduled for soonest apt at [place] 08/06 at 3pm. They are asking if this is ok to wait and if they can get in sooner please contact them. Thank you, Arsh Rosas Production Manager [facility]) (Formerly [facility]) [phone] 07/20/2023,7:18 AM documented in this encounter Plan of Treatment Upcoming Encounters Date Type Department Care Team (Late st Contact Info) Description 07/24/2023 9:10 AM EDT Office Visit Pharmacy, [facility] [address] [place] [address] Pharmacist2, [facility] Sp [address] [place] [address] 08/07/2023 3:00 PM EDT Office Visit Pharmacy [address] [phone] Pharmacist2, [facility] [address] [address] 11/15/2023 8:40 AM EDT Office Visit Family Practice [address] [phone] Kristopher Lynch PA-C [address] [place] [phone] Health Maintenance Due Date Last Done Comments [...] filedocumented as of this encounter Care Teams Healthcare Facility Administrator Relationship Specialty Start Date End Date Kristopher Lynch PA-C [address] [place], [place] [address] PCP - General Physician Arnp 08/16/22 documented as of this encounter
--- OUTSIDE RECORDS SUMMARY | 2023-08-06 12:33 | External Medical Summary ---
Author Name Unknown Address Unknown Organization : Laboratory Report Ordering Provider Test Date Status MARIA C BOYD 07/11/2023 13:55:56 Final Observation Date Value Abnormality Reference (Units ) Status HbA1C 07/11/2023 13:55:56 10.9 Above high normal 4. 0-5.6 (%) Final Performing Location
--- NOTE | 2023-08-06 13:12 | Emergency Department Note ---
Impression & Plan New onset atrial flutter, Atrial flutter with rapid ventricular response, Hypertension, Hypervolemia, Pleural effusion, bilateral, Abdominal ascites, Mediastinal lymphadenopathy ED Provider Note NAME: VITO ANDRADE II AGE: 48 SEX: M : 1975 ARRIVES VIA: Walk-In INFORMANT: Patient ED PROVIDER(S): Leonid Frias MD CHIEF COMPLAINT: Shortness of breath, fatigue, abdominal bloating, leg swelling. PLAN: Disposition: Admit MEDICAL DECISION MAKING: The patient is a pleasant 48-year-old gentleman with a past medical history of recent diagnosis of diabetes approximately 2 weeks ago through his primary care doctor on a well visit where he understands his hemoglobin A1c was over 10 and was started on metformin who presents to the emergency department via walk-in accompanied by his for evaluation of swelling in his abdomen and swelling in both legs. He reports feeling mild shortness of breath and fatigue. He denies any chest pain, fevers, nausea, vomiting or diarrhea. He denies any urinary symptoms. The patient reports he had been a regular smoker but after his diagnosis of diabetes has stopped and has not smoked for the past 2 weeks. He denies any regular alcohol use. Of note, the patient's heart rate was elevated in the 160s-180s on presentation and reports that only after being told his heart rate was that fast that he feels maybe he can feel his heart racing. Otherwise he denies any palpitations or sensation of racing heart. On evaluation the patient is no acute distress, afebrile with heart rate in the 160s-180s and what is suspected to be atrial flutter with variable AV block. Blood pressure was initially elevated in the 150s/100s and vital signs are otherwise stable. He appears hypervolemic with 1+ bilateral lower extremity edema and abdominal anasarca and mild distention but remains soft and nontender. EKG demonstrates suspected atrial flutter with variable AV block with RVR, 176 bpm, nonspecific ST abnormality, no overt ST elevation or depression. Chest x- ray demonstrates venous congestion and lungs otherwise better characterized on CT imaging. WBC 11.3 K, nonspecific. H/H and platelets within normal limits. Chemistry with bicarbonate of 19, nonspecific. Electrolytes and LFTs are unremarkable. High-sensitivity troponin is 12.8, within normal limits. Lipase not elevated. TSH 2.4, within normal limits. Given the patient's RVR he was treated with 5 mg of IV Lopressor x 3 as well as one-time dose of 500 cc of normal saline with improvement in heart rate to the 140s-160s. He was subsequently given 5 mg bolus of diltiazem and started on diltiazem drip with gradual additional improvement in rate control as dosing was titrated upwards. CTA of the chest was performed was negative for PE. There is a small right greater than left pleural effusions. Intralobular bronchial wall thickening is noted. Likely atelectasis is described. Body wall edema and small volume abdominal pelvic ascites is seen. Mild nonspecific mediastinal hilar lymphadenopathy is also noted. [id number] 2 score is 2 and so anticoagulation is indicated. Patient denies any history of bleeding and so heparin low-dose bolus and drip ordered. Case [facility], who will evaluate the patient for admission. Further management per admitting team. Triage Nursing notes reviewed and agree them. Prior/external medical records reviewed Vital Signs: reviewed Differential diagnosis: Infection, dehydration, metabolic abnormality, hypo/hyperglycemia, electrolyte disturbance, anemia, hypoxia, cardiac sources, intracerebral event, toxicologic, neurologic, as well as other pathologies. ER treatment provided: See below. Diagnostics interpreted by me: ECG: Atrial flutter with variable AV block with RVR, 176 bpm, nonspecific ST abnormality, no overt ST elevation or depression, QTc 472, QRS 82. Cardiac Monitoring: An order for continuous cardiac monitoring was placed and demonstrated Atrial flutter with variable AV block with RVR, 176 bpm. Laboratory studies: See below Imaging studies: See below Consultation(s[facility] HPI: The patient is a pleasant 48-year-old gentleman with a past medical history of recent diagnosis of diabetes approximately 2 weeks ago through his primary care doctor on a well visit where he understands his hemoglobin A1c was over 10 and was started on metformin who presents to the emergency department via walk- in accompanied by his for evaluation of swelling in his abdomen and swelling in both legs. He reports feeling mild shortness of breath and fatigue. He denies any chest pain, fevers, nausea, vomiting or diarrhea. He denies any urinary symptoms. The patient reports he had been a regular smoker but after his diagnosis of diabetes has stopped and has not smoked for the past 2 weeks. He denies any regular alcohol use. Of note, the patient's heart rate was elevated in the 160s-180s on presentation and reports that only after being told his heart rate was that fast that he feels maybe he can feel his heart racing. Otherwise he denies any palpitations or sensation of racing heart. ROS: See above HPI for pertinent positives & negatives. A total of 10 systems reviewed and were otherwise negative. VITALS:See Below PHYSICAL EXAMINATION: GENERAL: Awake, alert, in no distress HENT: Normocephalic, atraumatic. Oropharynx unremarkable. EYES: Normal conjunctiva. Sclera non-icteric. NECK: Supple. No nuchal rigidity. FROM. No JVD. RESPIRATORY: Clear to auscultation. CARDIAC: Tachycardic rate, irregular rhythm. Extremities warm and well perfused. Pulses equal. ABDOMEN: Mild distension but soft. No tenderness to palpation. No rebound or guarding. MUSCULOSKELETAL: Chest examination reveals no tenderness. The back is symmetrical on inspection without obvious abnormality. There is no CVA tenderness to palpation. No joint edema. LOWER EXTREMITIES: Calves are equal size bilaterally and non-tender. 1+ BLE edema. No discoloration. NEURO: Normal sensorium. No sensory or motor deficits noted. SKIN: No rash or jaundice noted. ED COURSE: Critical Care: I have personally spent greater than 65 minutes of critical care time in the direct management of this patient. This includes bedside care, interpretation of diagnostic studies, and testing, discussion with consultants, patient, and family members, and other required patient management activities. This 65 minutes is in excess of all separately billable procedures. Leonid Frias MD Past Med/Surg History Medical History Diabetes mellitus type 2, noninsulin dependent Family History Father Cancer bladder Daughter Crohn's disease Social History Smoking Status: Former smoker Feels Safe at Home: Yes Allergies Allergies Allergy/AdvReac Type Severity Reaction Status Date / Time No Known Allergies Allergy Unverified 08/06/23 17:08 Home Meds Home Medications Medication Instructions Recorded Confirmed metformin 500 mg tablet,extended 50 mg PO QAM 08/06/23 08/06/23 release 24 hr Results & Data (ED) Vital Signs Vital Signs - 24 hr 08/06/23 12:43 08/06/23 12:55 08/06/23 12:56 Temperature 36.7 C Temperature Source Temporal Artery Scan Pulse Rate 130 H 179 H Pulse Rate [Apical] Pulse Rate from SpO2 Sensor 106 H Respiratory Rate 18 25 H Respiratory Effort / Characteristics Respiratory Depth Respiratory Pattern Blood Pressure 150/100 H 178/130 H Blood Pressure [Left Arm] Blood Pressure Mean 116 157 Blood Pressure Mean [Left Arm] Pulse Oximetry 95 95 Oxygen Delivery Method Room Air Sepsis Recent Fever Within 48 Hours No Sepsis New/Unexplained Change in Mental Status N/A Sepsis Action Taken by Nursing No Action Required 08/06/23 12:57 08/06/23 13:00 08/06/23 13:10 Temperature Temperature Source Pulse Rate 169 H 170 H 184 H Pulse Rate [Apical] Pulse Rate from SpO2 Sensor 88 72 Respiratory Rate 27 H 20 Respiratory Effort / Characteristics Respiratory Depth Respiratory Pattern Blood Pressure Blood Pressure [Left Arm] Blood Pressure Mean Blood Pressure Mean [Left Arm] Pulse Oximetry 96 93 Oxygen Delivery Method Sepsis Recent Fever Within 48 Hours Sepsis New/Unexplained Change in Mental Status Sepsis Action Taken by Nursing 08/06/23 13:15 08/06/23 13:20 08/06/23 13:30 Temperature Temperature Source Pulse Rate 182 H 173 H Pulse Rate [Apical] 168 H Pulse Rate from SpO2 Sensor 104 H Respiratory Rate 19 27 H Respiratory Effort / Characteristics Non-Labored Respiratory Depth Normal Respiratory Pattern Regular Blood Pressure 178/130 H Blood Pressure [Left Arm] 178/130 H Blood Pressure Mean Blood Pressure Mean [Left Arm] 146 Pulse Oximetry 95 95 Oxygen Delivery Method Room Air Sepsis Recent Fever Within 48 Hours Sepsis New/Unexplained Change in Mental Status Sepsis Action Taken by Nursing 08/06/23 13:30 08/06/23 13:40 08/06/23 13:50 Temperature Temperature Source Pulse Rate 199 H 176 H 148 H Pulse Rate [Apical] Pulse Rate from SpO2 Sensor 105 H 134 H 119 H Respiratory Rate 20 20 26 H Respiratory Effort / Characteristics Respiratory Depth Respiratory Pattern Blood Pressure Blood Pressure [Left Arm] Blood Pressure Mean Blood Pressure Mean [Left Arm] Pulse Oximetry 96 95 95 Oxygen Delivery Method Sepsis Recent Fever Within 48 Hours Sepsis New/Unexplained Change in Mental Status Sepsis Action Taken by Nursing 08/06/23 13:53 08/06/23 13:53 08/06/23 13:53 Temperature Temperature Source Pulse Rate 165 H Pulse Rate [Apical] 169 H Pulse Rate from SpO2 Sensor Respiratory Rate 23 26 H Respiratory Effort / Characteristics Respiratory Depth Respiratory Pattern Blood Pressure 120/88 Blood Pressure [Left Arm] 120/88 Blood Pressure Mean 92 Blood Pressure Mean [Left Arm] 98 Pulse Oximetry 95 94 Oxygen Delivery Method Room Air Sepsis Recent Fever Within 48 Hours Sepsis New/Unexplained Change in Mental Status Sepsis Action Taken by Nursing 08/06/23 14:00 08/06/23 14:01 08/06/23 14:01 Temperature Temperature Source Pulse Rate 170 H 162 H Pulse Rate [Apical] Pulse Rate from SpO2 Sensor 122 H 107 H Respiratory Rate 18 16 Respiratory Effort / Characteristics Respiratory Depth Respiratory Pattern Blood Pressure 118/82 Blood Pressure [Left Arm] Blood Pressure Mean 95 Blood Pressure Mean [Left Arm] Pulse Oximetry 96 95 Oxygen Delivery Method Sepsis Recent Fever Within 48 Hours Sepsis New/Unexplained Change in Mental Status Sepsis Action Taken by Nursing 08/06/23 14:02 08/06/23 14:10 08/06/23 14:12 Temperature Temperature Source Pulse Rate 163 H 162 H Pulse Rate [Apical] Pulse Rate from SpO2 Sensor 99 H Respiratory Rate 14 Respiratory Effort / Characteristics Respiratory Depth Respiratory Pattern Blood Pressure 118/82 128/106 H Blood Pressure [Left Arm] Blood Pressure Mean 110 Blood Pressure Mean [Left Arm] Pulse Oximetry 96 Oxygen Delivery Method Sepsis Recent Fever Within 48 Hours Sepsis New/Unexplained Change in Mental Status Sepsis Action Taken by Nursing 08/06/23 14:12 08/06/23 14:20 08/06/23 14:20 Temperature Temperature Source Pulse Rate 172 H 169 H Pulse Rate [Apical] Pulse Rate from SpO2 Sensor 96 H 157 H Respiratory Rate 28 H 0 L Respiratory Effort / Characteristics Respiratory Depth Respiratory Pattern Blood Pressure 43/31 L Blood Pressure [Left Arm] Blood Pressure Mean 37 Blood Pressure Mean [Left Arm] Pulse Oximetry 95 97 Oxygen Delivery Method Sepsis Recent Fever Within 48 Hours Sepsis New/Unexplained Change in Mental Status Sepsis Action Taken by Nursing 08/06/23 14:23 08/06/23 14:23 08/06/23 14:30 Temperature Temperature Source Pulse Rate 168 H 161 H Pulse Rate [Apical] Pulse Rate from SpO2 Sensor 165 H 101 H Respiratory Rate 24 26 H Respiratory Effort / Characteristics Respiratory Depth Respiratory Pattern Blood Pressure 110/80 Blood Pressure [Left Arm] Blood Pressure Mean 84 Blood Pressure Mean [Left Arm] Pulse Oximetry 97 87 L Oxygen Delivery Method Sepsis Recent Fever Within 48 Hours Sepsis New/Unexplained Change in Mental Status Sepsis Action Taken by Nursing 08/06/23 14:32 08/06/23 14:40 08/06/23 14:50 Temperature Temperature Source Pulse Rate 170 H 160 H 166 H Pulse Rate [Apical] Pulse Rate from SpO2 Sensor 123 H 129 H Respiratory Rate 14 22 Respiratory Effort / Characteristics Respiratory Depth Respiratory Pattern Blood Pressure 110/80 Blood Pressure [Left Arm] Blood Pressure Mean Blood Pressure Mean [Left Arm] Pulse Oximetry 96 95 Oxygen Delivery Method Sepsis Recent Fever Within 48 Hours Sepsis New/Unexplained Change in Mental Status Sepsis Action Taken by Nursing 08/06/23 15:00 08/06/23 15:10 08/06/23 15:20 Temperature Temperature Source Pulse Rate 158 H 158 H 153 H Pulse Rate [Apical] Pulse Rate from SpO2 Sensor 142 H 182 H 118 H Respiratory Rate 24 6 L 0 L Respiratory Effort / Characteristics Respiratory Depth Respiratory Pattern Blood Pressure Blood Pressure [Left Arm] Blood Pressure Mean Blood Pressure Mean [Left Arm] Pulse Oximetry 92 98 97 Oxygen Delivery Method Sepsis Recent Fever Within 48 Hours Sepsis New/Unexplained Change in Mental Status Sepsis Action Taken by Nursing 08/06/23 15:48 08/06/23 15:49 08/06/23 15:49 Temperature Temperature Source Pulse Rate 161 H 148 H Pulse Rate [Apical] Pulse Rate from SpO2 Sensor 129 H 135 H Respiratory Rate 20 26 H Respiratory Effort / Characteristics Respiratory Depth Respiratory Pattern Blood Pressure 111/84 Blood Pressure [Left Arm] Blood Pressure Mean 89 Blood Pressure Mean [Left Arm] Pulse Oximetry 86 L 92 Oxygen Delivery Method Sepsis Recent Fever Within 48 Hours Sepsis New/Unexplained Change in Mental Status Sepsis Action Taken by Nursing 08/06/23 15:50 08/06/23 15:51 08/06/23 15:54 Temperature Temperature Source Pulse Rate 160 H 143 H 146 H Pulse Rate [Apical] Pulse Rate from SpO2 Sensor 119 H 92 H 91 H Respiratory Rate 22 24 19 Respiratory Effort / Characteristics Respiratory Depth Respiratory Pattern Blood Pressure Blood Pressure [Left Arm] Blood Pressure Mean Blood Pressure Mean [Left Arm] Pulse Oximetry 95 95 94 Oxygen Delivery Method Sepsis Recent Fever Within 48 Hours Sepsis New/Unexplained Change in Mental Status Sepsis Action Taken by Nursing 08/06/23 15:54 08/06/23 16:00 08/06/23 16:08 Temperature Temperature Source Pulse Rate 157 H 139 H Pulse Rate [Apical] Pulse Rate from SpO2 Sensor 96 H 88 Respiratory Rate 12 12 Respiratory Effort / Characteristics Respiratory Depth Respiratory Pattern Blood Pressure 112/86 Blood Pressure [Left Arm] Blood Pressure Mean 92 Blood Pressure Mean [Left Arm] Pulse Oximetry 97 93 Oxygen Delivery Method Sepsis Recent Fever Within 48 Hours Sepsis New/Unexplained Change in Mental Status Sepsis Action Taken by Nursing 08/06/23 16:08 08/06/23 16:10 08/06/23 16:10 Temperature Temperature Source Pulse Rate 153 H Pulse Rate [Apical] Pulse Rate from SpO2 Sensor 109 H Respiratory Rate 17 Respiratory Effort / Characteristics Respiratory Depth Respiratory Pattern Blood Pressure 110/95 146/105 H Blood Pressure [Left Arm] Blood Pressure Mean 99 115 Blood Pressure Mean [Left Arm] Pulse Oximetry 91 Oxygen Delivery Method Sepsis Recent Fever Within 48 Hours Sepsis New/Unexplained Change in Mental Status Sepsis Action Taken by Nursing 08/06/23 16:20 08/06/23 16:22 08/06/23 16:22 Temperature Temperature Source Pulse Rate 162 H 155 H Pulse Rate [Apical] Pulse Rate from SpO2 Sensor 102 H 85 Respiratory Rate 26 H 24 Respiratory Effort / Characteristics Respiratory Depth Respiratory Pattern Blood Pressure 125/95 Blood Pressure [Left Arm] Blood Pressure Mean 98 Blood Pressure Mean [Left Arm] Pulse Oximetry 93 93 Oxygen Delivery Method Sepsis Recent Fever Within 48 Hours Sepsis New/Unexplained Change in Mental Status Sepsis Action Taken by Nursing 08/06/23 16:28 08/06/23 16:28 08/06/23 16:28 Temperature Temperature Source Pulse Rate 165 H 147 H 153 H Pulse Rate [Apical] Pulse Rate from SpO2 Sensor Respiratory Rate Respiratory Effort / Characteristics Respiratory Depth Respiratory Pattern Blood Pressure Blood Pressure [Left Arm] Blood Pressure Mean Blood Pressure Mean [Left Arm] Pulse Oximetry Oxygen Delivery Method Sepsis Recent Fever Within 48 Hours Sepsis New/Unexplained Change in Mental Status Sepsis Action Taken by Nursing 08/06/23 16:30 08/06/23 16:31 08/06/23 16:31 Temperature Temperature Source Pulse Rate 163 H 168 H Pulse Rate [Apical] Pulse Rate from SpO2 Sensor 100 H 112 H Respiratory Rate 25 H 25 H Respiratory Effort / Characteristics Respiratory Depth Respiratory Pattern Blood Pressure 151/78 H Blood Pressure [Left Arm] Blood Pressure Mean 83 Blood Pressure Mean [Left Arm] Pulse Oximetry 94 94 Oxygen Delivery Method Sepsis Recent Fever Within 48 Hours Sepsis New/Unexplained Change in Mental Status Sepsis Action Taken by Nursing 08/06/23 16:40 08/06/23 16:42 08/06/23 16:42 Temperature Temperature Source Pulse Rate 156 H 155 H Pulse Rate [Apical] Pulse Rate from SpO2 Sensor 115 H 81 Respiratory Rate 21 24 Respiratory Effort / Characteristics Respiratory Depth Respiratory Pattern Blood Pressure 124/81 Blood Pressure [Left Arm] Blood Pressure Mean 109 Blood Pressure Mean [Left Arm] Pulse Oximetry 88 L 95 Oxygen Delivery Method Sepsis Recent Fever Within 48 Hours Sepsis New/Unexplained Change in Mental Status Sepsis Action Taken by Nursing 08/06/23 17:00 08/06/23 17:06 08/06/23 18:14 Temperature Temperature Source Pulse Rate 124 H Pulse Rate [Apical] 146 H Pulse Rate from SpO2 Sensor Respiratory Rate 22 Respiratory Effort / Characteristics Non-Labored Spontaneous Respiratory Depth Normal Respiratory Pattern Blood Pressure Blood Pressure [Left Arm] 145/125 H Blood Pressure Mean Blood Pressure Mean [Left Arm] 131 Pulse Oximetry 99 93 Oxygen Delivery Method Room Air Room Air Sepsis Recent Fever Within 48 Hours Sepsis New/Unexplained Change in Mental Status Sepsis Action Taken by Nursing 08/06/23 19:00 08/06/23 19:30 Temperature Temperature Source Pulse Rate 142 H 111 H Pulse Rate [Apical] Pulse Rate from SpO2 Sensor 94 H 71 Respiratory Rate 20 20 Respiratory Effort / Characteristics Respiratory Depth Respiratory Pattern Blood Pressure 124/78 120/88 Blood Pressure [Left Arm] Blood Pressure Mean 93 98 Blood Pressure Mean [Left Arm] Pulse Oximetry 94 94 Oxygen Delivery Method Room Air Room Air Sepsis Recent Fever Within 48 Hours Sepsis New/Unexplained Change in Mental Status Sepsis Action Taken by Nursing Laboratory Data Attestation: I reviewed the patient's lab results. 08/06/23 13:10 08/06/23 12:58 Lab Results 08/06/23 08/06/23 Range/Units 12:58 13:10 WBC 11.33 H (4.8-10.8) K/ul RBC 5.66 (4.70-6.10) M/uL Hgb 16.8 (14.0-18.0) g/dl Hct 51.1 (42.0-52.0) % MCV 90.3 (80.0-100.0) fL MCH 29.7 (25.0-34.0) pg MCHC 32.9 (32.0-36.0) g/dL RDW Std Deviation 43.2 (36.4-46.3) fL RDW Coeff of [place] 13.1 (11.5-14.5) % Plt Count 198 (130-400) K/uL MPV 13.5 H (9.4-12.4) fL Immature Gran % (Auto) 0.4 % Neut % (Auto) 72.7 % Lymph % (Auto) 18.4 % [place] % (Auto) 7.3 % Eos % (Auto) 0.6 % Baso % (Auto) 0.6 % Neut # (Auto) 8.22 H (1.40-6.50) K/uL Lymph # (Auto) 2.09 (1.20-3.40) K/uL [place] # (Auto) 0.83 H (0.11-0.59) K/uL Eos # (Auto) 0.07 (0.00-0.50) K/uL Baso # (Auto) 0.07 (0.00-0.20) K/uL Immature Gran # (Auto) 0.05 (0.01-0.20) K/uL PT 12.3 H (9.0-12.0) Seconds INR 1.1 (0.9-1.1) APTT 27 (21-31) Seconds PTT Ratio 1.0 Sodium 137 (136-145) mmol/L Potassium 4.3 (3.5-5.1) mmol/L Chloride 110 H (98-107) mmol/L Carbon Dioxide 19 L (21-32) mmol/L Anion Gap 8 (3-11) BUN 23 (6-23) mg/dl Creatinine 1.02 (0.6-1.4) mg/dl Est Cr Clr Drug Dosing 126.4 ml/min Est GFR ( Amer) 98.9 ml/min Est GFR (Non-Af Amer) 85.3 ml/min BUN/Creatinine Ratio 22.5 H (10-20) Glucose 231 H (70-99(Fasting)) mg/dl Osmolality 300 (280-300) mOsm/kg Calcium 9.2 (8.6-10.3) mg/dl Phosphorus 4.1 (2.5-4.9) mg/dl Magnesium 2.1 (1.7-2.4) mg/dl Total Bilirubin 1.0 (0.2-1.0) mg/dl Direct Bilirubin 0.2 (0-0.2) mg/dl AST 23 (13-39) U/L ALT 22 (7-52) U/L Alkaline Phosphatase 93 (34-104) U/L Troponin I High Sens 12.8 (0-20) pg/ml B-Natriuretic Peptide 222 H (0-100) pg/ml Total Protein 6.6 (6.0-8.3) gm/dl Albumin 4.1 (3.4-5.0) gm/dl Globulin 2.5 (2.5-4.0) gm/dl Albumin/Globulin Ratio 1.6 (0.9-2) Lipase 12 (11-82) U/L TSH 2.432 (0.300-4.500) uIu/ml Administered Medications Diltiazem HCl 125 mg/ Dextrose 125 mls @ 5 mls/hr IV .Q24H LALITHA; Protocol Stop: 09/05/23 16:14 Last Titration: 08/06/23 18:58 Dose: 15 mg/hr, 15 mls/hr Documented By: MERCY Co-signed By: ANNA Titration: 08/06/23 17:15 Dose: 10 mg/hr, 10 mls/hr Documented By: AKOSUA Co-signed By: BUZZ Admin: 08/06/23 16:49 Dose: 5 mg/hr, 5 mls/hr Documented By: MERCY Co-signed By: JOSH Heparin Sodium/Dextrose (Heparin Sodium/Dextrose) 25,000 units in 500 mls @ 20 mls/hr IV .Q24H LALITHA; Protocol Stop: 09/05/23 17:44 Last Admin: 08/06/23 17:48 Dose: 1,000 units/hr, 20 mls/hr Documented By: MERCY Co-signed By: JOSH Discontinued Medications Diltiazem HCl (Diltiazem Hcl 5 Mg/Ml 5 Ml Vial) 5 mg IV NOW STA Stop: 08/06/23 16:07 Last Admin: 08/06/23 16:48 Dose: 5 mg Documented By: MERCY Co-signed By: JOSH Furosemide (Furosemide Inj 20 Mg/2 Ml Vial) 20 mg IV ONE ONE Stop: 08/06/23 16:58 Last Admin: 08/06/23 17:31 Dose: 20 mg Documented By: MERCY Heparin Sodium (Porcine) (Heparin Sod (Porcine) 1000 Unit/Ml) 4,000 units IV NOW ONE Stop: 08/06/23 17:35 Last Admin: 08/06/23 17:46 Dose: 4,000 units Documented By: MERCY Co-signed By: JOSH Heparin Sodium/Dextrose (Heparin Iv Adult Wt-Based Low-Dose W/ Initial Bolus Protocol) 1 each IV NOW STA; Protocol Stop: 08/06/23 17:18 Last Admin: 08/06/23 17:26 Dose: 1 each Documented By: AKOSUA Sodium Chloride (Nss) 500 mls @ 999 mls/hr IV .Q31M ONE Stop: 08/06/23 14:24 Last Infusion: 08/06/23 15:40 Dose: Infused Documented By: Admin: 08/06/23 14:01 Dose: 999 mls/hr Documented By: XOCHILT Ioversol (Optiray 320 125ml) 119 ml IV ONCE ONE Stop: 08/06/23 15:42 Last Admin: 08/06/23 15:42 Dose: 119 ml Documented By: SAVANNA Metoprolol Tartrate (Metoprolol Tartrate 1 Mg/Ml Vial) 5 mg IV NOW STA Stop: 08/06/23 13:29 Last Admin: 08/06/23 13:30 Dose: 5 mg Documented By: MERCY Metoprolol Tartrate (Metoprolol Tartrate 1 Mg/Ml Vial) 5 mg IV NOW STA Stop: 08/06/23 13:55 Last Admin: 08/06/23 14:02 Dose: 5 mg Documented By: XOCHILT Metoprolol Tartrate (Metoprolol Tartrate 1 Mg/Ml Vial) 5 mg IV NOW STA Stop: 08/06/23 14:20 Last Admin: 08/06/23 14:32 Dose: 5 mg Documented By: XOCHILT Miscellaneous (Stat Iv Infusion Titration Per Protocol) 1 each N/A NOW STA Stop: 08/06/23 16:07 Last Admin: 08/06/23 17:51 Dose: Not Given Documented By: MERCY Imaging Data Radiologist's Impression: Chest X-Ray 08/06/23 13:10 XR chest 1V portable HISTORY: 48 years-old Male abd pain acute shortness of breath COMPARISON: 05/16/2012 TECHNIQUE: AP view of the chest FINDINGS: Cardiac silhouette is enlarged. Pulmonary vascular congestion. Mild subsegmental bibasilar densities. No pneumothorax, large pleural effusion or overt pulmonary edema. Bones appear grossly intact. IMPRESSION: 1. Cardiomegaly with pulmonary vascular congestion. 2. Mild bibasilar opacities favor atelectasis. A nonspecific pneumonitis could appear similarly. ACT 112: Negative or not required by law. The above report was generated using voice recognition software. It may contain grammatical, syntax or spelling errors. Electronically signed by: Guanako Rojas M.D. 08/06/2023 1:40 PM Abdomen/Pelvis CT 08/06/23 13:28 CT angio chest PE protocol, CT abd pelvis IV con only CT DOSE: 2468.97 mGy.cm HISTORY: 48 years-old Male with chest/abd pain,sob, tachycardia, r/o PE. Acute shortness of breath with chest and abdominal pain TECHNIQUE: Multiple CTA images of the chest were obtained after the intravenous administration of 119 ml Optiray. Coronal and sagittal MIPS were obtained from the axial data set and were submitted for review. CT abdomen and pelvis with IV contrast only also obtained. All measurements were obtained according to NASCET criteria. A dose lowering technique was utilized adhering to the principles of ALARA. COMPARISON: CT abdomen and pelvis 07/10/2017 FINDINGS: CTA: Mild cardiomegaly with trace pericardial effusion. The left heart structures are not well opacified secondary to contrast bolus timing. There are numerous tiny opacified collateral veins in the anterior mediastinum and left neck. Left heart structures are not well opacified and therefore difficult to evaluate. No central pulmonary emboli identified. The segmental and subsegmental branches are not well visualized secondary to contrast bolus timing. CT CHEST: No thyroid nodule. Body wall edema. Nonspecific mildly enlarged mediastinal and hilar lymph nodes measure up to 1.3 cm. Small left with small moderate pleural effusions. No pneumothorax. Intralobular bronchial wall thickening. Dependent bibasilar groundglass densities. No suspicious pulmonary nodules or masses. Central airways are patent. No acute fracture. CT ABDOMEN/PELVIS: No free air. Unremarkable spleen, mildly atrophic pancreas and adrenal glands. Possible cholelithiasis. Heterogeneity of the liver with possible hepatic steatosis. Symmetric enhancement of the kidneys. No hydronephrosis. Decompressed urinary bladder with wall thickening. Prostatomegaly. Small fat filled inguinal hernias. Atherosclerosis of the aorta without aneurysm. Mild periportal lymphadenopathy. Mild nonspecific distal esophageal wall thickening. Rectal wall thickening with partial distention. Mild to moderate colonic fecal retention. Normal appendix. Small fat filled umbilical hernia. No acute fracture. IMPRESSION: 1. No pulmonary emboli identified. 2. Cardiomegaly with fluid overload. This includes anasarca with pulmonary edema, trace pericardial effusion, right greater than left pleural effusions with small volume of abdominopelvic ascites. 3. No bowel obstruction or pneumoperitoneum. 4. Mild nonspecific mediastinal and hilar lymphadenopathy. 5. Additional findings as above. ACT 112: Negative or not required by law. The above report was generated using voice recognition software. It may contain grammatical, syntax or spelling errors. Electronically signed by: Guanako Rojas M.D. 08/06/2023 4:50 PM Chest CTA 08/06/23 13:28 CT angio chest PE protocol, CT abd pelvis IV con only CT DOSE: 2468.97 mGy.cm HISTORY: 48 years-old Male with chest/abd pain,sob, tachycardia, r/o PE. Acute shortness of breath with chest and abdominal pain TECHNIQUE: Multiple CTA images of the chest were obtained after the intravenous administration of 119 ml Optiray. Coronal and sagittal MIPS were obtained from the axial data set and were submitted for review. CT abdomen and pelvis with IV contrast only also obtained. All measurements were obtained according to NASCET criteria. A dose lowering technique was utilized adhering to the principles of ALARA. COMPARISON: CT abdomen and pelvis 07/10/2017 FINDINGS: CTA: Mild cardiomegaly with trace pericardial effusion. The left heart structures are not well opacified secondary to contrast bolus timing. There are numerous tiny opacified collateral veins in the anterior mediastinum and left neck. Left heart structures are not well opacified and therefore difficult to evaluate. No central pulmonary emboli identified. The segmental and subsegmental branches are not well visualized secondary to contrast bolus timing. CT CHEST: No thyroid nodule. Body wall edema. Nonspecific mildly enlarged mediastinal and hilar lymph nodes measure up to 1.3 cm. Small left with small moderate pleural effusions. No pneumothorax. Intralobular bronchial wall thickening. Dependent bibasilar groundglass densities. No suspicious pulmonary nodules or masses. Central airways are patent. No acute fracture. CT ABDOMEN/PELVIS: No free air. Unremarkable spleen, mildly atrophic pancreas and adrenal glands. Possible cholelithiasis. Heterogeneity of the liver with possible hepatic steatosis. Symmetric enhancement of the kidneys. No hydronephrosis. Decompressed urinary bladder with wall thickening. Prostatomegaly. Small fat filled inguinal hernias. Atherosclerosis of the aorta without aneurysm. Mild periportal lymphadenopathy. Mild nonspecific distal esophageal wall thickening. Rectal wall thickening with partial distention. Mild to moderate colonic fecal retention. Normal appendix. Small fat filled umbilical hernia. No acute fracture. IMPRESSION: 1. No pulmonary emboli identified. 2. Cardiomegaly with fluid overload. This includes anasarca with pulmonary edema, trace pericardial effusion, right greater than left pleural effusions with small volume of abdominopelvic ascites. 3. No bowel obstruction or pneumoperitoneum. 4. Mild nonspecific mediastinal and hilar lymphadenopathy. 5. Additional findings as above. ACT 112: Negative or not required by law. The above report was generated using voice recognition software. It may contain grammatical, syntax or spelling errors. Electronically signed by: Guanako Rojas M.D. 08/06/2023 4:50 PM Discharge Plan Visit Data Chief Complaint: Abdominal Pain Stated Complaint: SOB, LETHARGIC, BLOATING/HARD ABD, ANKLE/FEET SWEL ED Provider: Leonid Frias Discharge Problem: New onset atrial flutter, Atrial flutter with rapid ventricular response, Hypertension, Hypervolemia, Pleural effusion, bilateral, Abdominal ascites, Mediastinal lymphadenopathy Forms Stand Alone Forms: [employer] Prescriptions Prescriptions: No Action metformin 500 mg tablet extended release 24 hr 50 mg PO QAM Referrals Referrals: Ulices Navarrete PA-C [Outside Practitioners] - Discharge Problem: Hypertension Qualifiers: Hypertension type: unspecified Qualified Code(s): I10 - Essential (primary) hypertension Hypervolemia Qualifiers: Hypervolemia type: unspecified Qualified Code(s): E87.70 - Fluid overload, unspecified Abdominal ascites Qualifiers: Ascites type: other type Qualified Code(s): R18.8 - Other ascites
[2023-08-06] MEDS: METOPROLOL TARTRATE 1 MG/ML VIAL IV STA ×3 (13:30→14:32)
[2023-08-06 13:33] LABS: Albumin Globulin Ratio 1.6 (0.9-2); Albumin Level 4.1 gm/dl (3.4-5.0); BUN Creatinine Ratio 22.5 (10-20); Bilirubin Direct 0.2 mg/dl (0-0.2); Calcium 9.2 mg/dl (8.6-10.3); Creatinine Clr Calc Pharmacy 126.4 ml/min; Est GFR (African American) 98.9 ml/min; Est GFR (Non-African American) 85.3 ml/min; Globulin 2.5 gm/dl (2.5-4.0); Magnesium 2.1 mg/dl (1.7-2.4); Phosphorus 4.1 mg/dl (2.5-4.9); Potassium 4.3 mmol/L (3.5-5.1); Total Protein 6.6 gm/dl (6.0-8.3)
[2023-08-06 13:36] LABS: Troponin I High Sensitivity 12.8 pg/ml (0-20)
--- NOTE | 2023-08-06 13:41 | XRay Report ---
XR chest 1V portable HISTORY: 48 years-old Male abd pain acute shortness of breath COMPARISON: 05/16/2012 TECHNIQUE: AP view of the chest FINDINGS: Cardiac silhouette is enlarged. Pulmonary vascular congestion. Mild subsegmental bibasilar densities. No pneumothorax, large pleural effusion or overt pulmonary edema. Bones appear grossly intact. IMPRESSION: 1. Cardiomegaly with pulmonary vascular congestion. 2. Mild bibasilar opacities favor atelectasis. A nonspecific pneumonitis could appear similarly. ACT 112: Negative or not required by law. The above report was generated using voice recognition software. It may contain grammatical, syntax o r spelling errors. Electronically signed by: Guanako Rojas M.D. 08/06/2023 1:40 PM
[2023-08-06 13:46] LABS: Thyroid Stimulating Hormone 2.432 uIu/ml (0.300-4.500)
[2023-08-06 13:49] LABS: INR 1.1 (0.9-1.1); Prothrombin Time 12.3 Seconds (9.0-12.0)
[2023-08-06] MEDS: SODIUM CHLORIDE 0.9% 500 ML IV ONE (14:01)
--- NOTE | 2023-08-06 15:25 | Electrocardiogram Report ---
Test Reason : Blood Pressure : / mmHG Vent. Rate : 176 BPM Atrial Rate : 000 BPM P-R Int : 000 ms QRS Dur : 082 ms QT Int : 276 ms P-R-T Axes : 000 100 009 degrees QTc Int : 472 ms Atrial fibrillation with rapid ventricular response Rightward axis Low voltage QRS Nonspecific ST abnormality Abnormal ECG When compared with ECG of 10-JUL-2017 11:45, Atrial fibrillation has replaced Sinus rhythm Vent. rate has increased BY 116 BPM Nonspecific T wave abnormality now evident in Inferior leads Nonspecific T wave abnormality now evident in Lateral leads Confirmed by Nicho Nelson ([id number]) on 08/06/2023 3:24:37 PM Referred By: Confirmed By:Lebron Nelson
[2023-08-06] MEDS: OPTIRAY 320 125ml IV ONE (15:42)
[2023-08-06] MEDS: dilTIAZem HCl 5 MG/ML 5 ML VIAL IV STA (16:48)
[2023-08-06] MEDS: dilTIAZem HCL 125 MG in DEXTROSE 5% 100 ML IV SCH (16:49)
--- NOTE | 2023-08-06 16:51 | CT Scan Report ---
CT angio chest PE protocol, CT abd pelvis IV con only CT DOSE: 2468.97 mGy.cm HISTORY: 48 years-old Male with chest/abd pain,sob, tachycardia, r/o PE. Acute shortness of breath with chest and abdominal pain TECHNIQUE: Multiple CTA images of the chest were obtained after the intravenous administration of 119 ml Optiray. Coronal and sagittal MIPS were obtained from the axial data set and were submitted for review. CT abdomen and pelvis with IV contrast only also obtained. All measurements were obtained acc ording to NASCET criteria. A dose lowering technique was utilized adhering to the principles of ALARA . COMPARISON: CT abdomen and pelvis 07/10/2017 FINDINGS: CTA: Mild cardiomegaly with trace pericardial effusion. The left heart structures are not well opacified s econdary to contrast bolus timing. There are numerous tiny opacified collateral veins in the anterior mediastinum and left neck. Left heart structures are not well opacified and therefore difficult to e valuate. No central pulmonary emboli identified. The segmental and subsegmental branches are not well visualized secondary to contrast bolus timing. CT CHEST: No thyroid nodule. Body wall edema. Nonspecific mildly enlarged mediastinal and hilar lymph nodes niyah sure up to 1.3 cm. Small left with small moderate pleural effusions. No pneumothorax. Intralobular br onchial wall thickening. Dependent bibasilar groundglass densities. No suspicious pulmonary nodules o r masses. Central airways are patent. No acute fracture. CT ABDOMEN/PELVIS: No free air. Unremarkable spleen, mildly atrophic pancreas and adrenal glands. Possible cholelithiasi s. Heterogeneity of the liver with possible hepatic steatosis. Symmetric enhancement of the kidneys. No hydronephrosis. Decompressed urinary bladder with wall thickening. Prostatomegaly. Small fat fille d inguinal hernias. Atherosclerosis of the aorta without aneurysm. Mild periportal lymphadenopathy. Mild nonspecific distal esophageal wall thickening. Rectal wall thickening with partial distention. M ild to moderate colonic fecal retention. Normal appendix. Small fat filled umbilical hernia. No acute fracture. IMPRESSION: 1. No pulmonary emboli identified. 2. Cardiomegaly with fluid overload. This includes anasarca with pulmonary edema, trace pericardial e ffusion, right greater than left pleural effusions with small volume of abdominopelvic ascites. 3. No bowel obstruction or pneumoperitoneum. 4. Mild nonspecific mediastinal and hilar lymphadenopathy. 5. Additional findings as above. ACT 112: Negative or not required by law. The above report was generated using voice recognition software. It may contain grammatical, syntax o r spelling errors. Electronically signed by: Guanako Rojas M.D. 08/06/2023 4:50 PM
[2023-08-06] MEDS: Heparin IV Adult Wt-Based Low-Dose w/ INITIAL Bolus Protocol IV STA (17:26)
[2023-08-06] MEDS: FUROSEMIDE INJ 20 MG/2 ML VIAL IV ONE (17:31)
[2023-08-06] MEDS ORDERED: HEPARIN SOD (PORCINE) 1000 UNIT/ML IV ONE (17:34)
[2023-08-06] MEDS ORDERED: PHARMACY GLYCEMIC MGMT CONSULT PRN (17:37)
[2023-08-06 17:46] LABS: Partial Thromboplastin Time 27 Seconds (21-31)
[2023-08-06] MEDS: HEPARIN SOD (PORCINE) 1000 UNIT/ML IV ONE (17:46)
[2023-08-06] MEDS: HEPARIN SODIUM/DEXTROSE 25,000 UNITS/500 ML BAG IV SCH (17:48)
[2023-08-06] MEDS: STAT IV Infusion **Titration per Protocol STA (17:51)
--- NOTE | 2023-08-06 17:51 | History & Physical Report ---
Date of Service August 06, 2023 Assessment & Plan (1) Atrial fibrillation with RVR: (2) New onset atrial fibrillation: Plan: Pt presents with new onset Afib w/ RVR, poss. new HF - fluid overload likely secondary to above, reports weight gain of about 30 lbs - CXR w/ pulm. vasc. congestion - CT abdomen and chest also obtained - no PE - but c/w cardiomegaly, pl. effusion, trace pericard. effusion, anasarca - reports shortness of breath especially on exertion, but no chest pain or palpitations, mainly increased abdominal girth and ankle edema - reports symptoms started after he started taking metformin - in ER HR 180, was given iv metoprolol 5 mg x3, with poor control of HR -> started on dilt drip - will cont. for now - HR ~120s - IV heparin - received 20 mg IV lasix in ED as pt is lasix naive - will continue w/ iv lasix and will closely monitor response - pt has been smoking, quit about 2 weeks ago (previously quit for 9 yrs but restarted) - check pro BNP - monitor I/Os, daily weights - low sodium diet, NPO after midnight - will admit to telemetry - will obtain echo - cardiology consult (3) Diabetes mellitus type 2, noninsulin dependent: Plan: Hgb A1c 10.9% in June 2023 - recent diagnosis - was on metformin - this was then stopped d/t symptoms above (edema) - monitor blood glc level, insulin achs, glycemic pharmacy, diabetic education History of Present Illness Chief Complaint: abdominal distention, ankle edema Primary Care Provider: MAXX Marley-Shira 48 M w/ hx of DM type 2 (Hgb A1c 10.9 % in June 2023), was started recently on metformin, who now presents with abdominal distention, ankle edema, shortness of breath on exertion and found to be in Afib w/ RVR in the ED w/ HR in 180s. Pt went to see his PCP on 07/10 when he complained about some numbness in his feet. At that time Hgb A1c was obtained and found elevated - 10.9%, and he was started on metformin 500 mg daily. He then followed up with diabetic pharmacist and his dose was increased to 2,000 mg a day. Prior to that, pt was not really seeing / following much with primary care physician. Pt feels that he started to gain weight and especially around his waist since being on metformin. He says that he never had ankle edema until now. He also noticed dyspnea on exertion but never had chest pain or palpitations. He quit smoking after being diagnosed with diabetes. He contacted his pcp and initially they decreased the dose of metformin and then completely stopped it. In the ED , pt was found to be in Afib w/ RVR, w/ HR 180s and initially IVF was given. he was also given iv metoprolol 5 mg x3 without appropriate HR control and therefore was started on dilt drip. CXR c/w pulm. vasc. congestion, CTA chest and CT abdomen/pelvis also obtained - c/w cardiomegaly, pl. effusion, anasarca. Pt was given small dose lasix (as he is lasix naive). He was started on iv heparin. Currently HR improved. Pt is sitting up in bed in NAD, he is breathing comfortably at rest on RA. He is awake, alert oriented and answers appropriat renetta. Says his usual weight was 256 lbs but now is 286 lbs (per his scale), and he can not really get his pants around his waist anymore, even though he is very careful about what he is eating. He denies any chest pain, palpitations, dizziness or lightheadedness. he is bothered by abdominal distention and ankle edema. Pt's is present at the bedside and helps provide the history. Allergies Allergy/AdvReac Type Severity Reaction Status Date / Time No Known Allergies Allergy Unverified 08/06/23 17:08 Home Medications Medication Instructions Recorded Confirmed Type metformin 500 mg tablet,extended 50 mg PO QAM 08/06/23 08/06/23 History release 24 hr Past Med/Surg History Medical History Diabetes mellitus type 2, noninsulin dependent Family History Father Cancer bladder Daughter Crohn's disease Social History Smoking Status: Former smoker Feels Safe at Home: Yes Review of Systems Review of Systems: All systems reviewed & are unremarkable except as noted in Subjective Physical Exam Constitutional: obese M in NAD Eyes: PERRL, conjunctivae normal, anicteric sclerae ENMT: external ear and nose normal, oropharynx normal Neck: trachea midline, no thyromegaly Respiratory: normal resp. effort, + diffuse crackles shan. at bases, no wheezing Cardiovascular: tachycardic, irregular Chest (Breasts): Chest: normal inspection of chest Gastrointestinal (Abdomen): obese, soft, distended, nontender, + bowel sounds Musculoskeletal: no cyanosis or clubbing, extremities motor strength 5/5 Skin: no rashes, warm and dry Neurologic: patellar DTR's 2+ bilat, sensation intact Psychiatric: A+Ox3, euthymic affect Lymphatic: + ankle edema Results & Data Results & Data Vital Signs (Past 12 Hours) Vital Signs Temp Pulse Pulse Resp BP BP Pulse Ox 08/06/23 17:06 124 H 08/06/23 17:00 146 H 22 145/125 H 99 08/06/23 16:42 124/81 08/06/23 16:42 155 H 24 95 08/06/23 16:40 156 H 21 88 L 08/06/23 16:31 168 H 25 H 94 08/06/23 16:31 151/78 H 08/06/23 16:30 163 H 25 H 94 08/06/23 16:28 153 H 08/06/23 16:28 147 H 08/06/23 16:28 165 H 08/06/23 16:22 155 H 24 93 08/06/23 16:22 125/95 08/06/23 16:20 162 H 26 H 93 08/06/23 16:10 146/105 H 08/06/23 16:10 153 H 17 91 08/06/23 16:08 110/95 08/06/23 16:08 139 H 12 93 08/06/23 16:00 157 H 12 97 08/06/23 15:54 112/86 08/06/23 15:54 146 H 19 94 08/06/23 15:51 143 H 24 95 08/06/23 15:50 160 H 22 95 08/06/23 15:49 148 H 26 H 92 08/06/23 15:49 111/84 08/06/23 15:48 161 H 20 86 L 08/06/23 15:20 153 H 0 L 97 08/06/23 15:10 158 H 6 L 98 08/06/23 15:00 158 H 24 92 08/06/23 14:50 166 H 22 95 08/06/23 14:40 160 H 14 96 08/06/23 14:32 170 H 110/80 08/06/23 14:30 161 H 26 H 87 L 08/06/23 14:23 110/80 08/06/23 14:23 168 H 24 97 08/06/23 14:20 169 H 0 L 97 08/06/23 14:20 43/31 L 08/06/23 14:12 172 H 28 H 95 08/06/23 14:12 128/106 H 08/06/23 14:10 162 H 14 96 08/06/23 14:02 163 H 118/82 08/06/23 14:01 162 H 16 95 08/06/23 14:01 118/82 08/06/23 14:00 170 H 18 96 08/06/23 13:53 120/88 08/06/23 13:53 165 H 26 H 94 08/06/23 13:53 169 H 23 120/88 95 08/06/23 13:50 148 H 26 H 95 08/06/23 13:40 176 H 20 95 08/06/23 13:30 199 H 20 96 08/06/23 13:30 173 H 178/130 H 08/06/23 13:20 182 H 27 H 95 08/06/23 13:15 168 H 19 178/130 H 95 08/06/23 13:10 184 H 20 93 08/06/23 13:00 170 H 27 H 96 08/06/23 12:57 169 H 08/06/23 12:56 179 H 25 H 95 08/06/23 12:55 178/130 H 08/06/23 12:43 36.7 C 130 H 18 150/100 H 95 O2 Del Method 08/06/23 17:06 08/06/23 17:00 Room Air 08/06/23 16:42 08/06/23 16:42 08/06/23 16:40 08/06/23 16:31 08/06/23 16:31 08/06/23 16:30 08/06/23 16:28 08/06/23 16:28 08/06/23 16:28 08/06/23 16:22 08/06/23 16:22 08/06/23 16:20 08/06/23 16:10 08/06/23 16:10 08/06/23 16:08 08/06/23 16:08 08/06/23 16:00 08/06/23 15:54 08/06/23 15:54 08/06/23 15:51 08/06/23 15:50 08/06/23 15:49 08/06/23 15:49 08/06/23 15:48 08/06/23 15:20 08/06/23 15:10 08/06/23 15:00 08/06/23 14:50 08/06/23 14:40 08/06/23 14:32 08/06/23 14:30 08/06/23 14:23 08/06/23 14:23 08/06/23 14:20 08/06/23 14:20 08/06/23 14:12 08/06/23 14:12 08/06/23 14:10 08/06/23 14:02 08/06/23 14:01 08/06/23 14:01 08/06/23 14:00 08/06/23 13:53 08/06/23 13:53 08/06/23 13:53 Room Air 08/06/23 13:50 08/06/23 13:40 08/06/23 13:30 08/06/23 13:30 08/06/23 13:20 08/06/23 13:15 Room Air 08/06/23 13:10 08/06/23 13:00 08/06/23 12:57 08/06/23 12:56 08/06/23 12:55 08/06/23 12:43 Room Air Laboratory Results 08/06/23 08/06/23 Range/Units 13:10 12:58 WBC 11.33 H (4.8-10.8) K/ul RBC 5.66 (4.70-6.10) M/uL Hgb 16.8 (14.0-18.0) g/dl Hct 51.1 (42.0-52.0) % MCV 90.3 (80.0-100.0) fL MCH 29.7 (25.0-34.0) pg MCHC 32.9 (32.0-36.0) g/dL RDW Std Deviation 43.2 (36.4-46.3) fL RDW Coeff of Chuy 13.1 (11.5-14.5) % Plt Count 198 (130-400) K/uL MPV 13.5 H (9.4-12.4) fL Immature Gran % (Auto) 0.4 % Neut % (Auto) 72.7 % Lymph % (Auto) 18.4 % Lyman % (Auto) 7.3 % Eos % (Auto) 0.6 % Baso % (Auto) 0.6 % Neut # (Auto) 8.22 H (1.40-6.50) K/uL Lymph # (Auto) 2.09 (1.20-3.40) K/uL Lyman # (Auto) 0.83 H (0.11-0.59) K/uL Eos # (Auto) 0.07 (0.00-0.50) K/uL Baso # (Auto) 0.07 (0.00-0.20) K/uL Immature Gran # (Auto) 0.05 (0.01-0.20) K/uL PT 12.3 H (9.0-12.0) Seconds INR 1.1 (0.9-1.1) APTT 27 (21-31) Seconds PTT Ratio 1.0 Sodium 137 (136-145) mmol/L Potassium 4.3 (3.5-5.1) mmol/L Chloride 110 H (98-107) mmol/L Carbon Dioxide 19 L (21-32) mmol/L Anion Gap 8 (3-11) BUN 23 (6-23) mg/dl Creatinine 1.02 (0.6-1.4) mg/dl Est Cr Clr Drug Dosing 126.4 ml/min Est GFR ( Amer) 98.9 ml/min Est GFR (Non-Af Amer) 85.3 ml/min BUN/Creatinine Ratio 22.5 H (10-20) Glucose 231 H (70-99(Fasting)) mg/dl Osmolality 300 (280-300) mOsm/kg Calcium 9.2 (8.6-10.3) mg/dl Phosphorus 4.1 (2.5-4.9) mg/dl Magnesium 2.1 (1.7-2.4) mg/dl Total Bilirubin 1.0 (0.2-1.0) mg/dl Direct Bilirubin 0.2 (0-0.2) mg/dl AST 23 (13-39) U/L ALT 22 (7-52) U/L Alkaline Phosphatase 93 (34-104) U/L Troponin I High Sens 12.8 (0-20) pg/ml Total Protein 6.6 (6.0-8.3) gm/dl Albumin 4.1 (3.4-5.0) gm/dl Globulin 2.5 (2.5-4.0) gm/dl Albumin/Globulin Ratio 1.6 (0.9-2) Lipase 12 (11-82) U/L TSH 2.432 (0.300-4.500) uIu/ml Diagnostic Findings CXR FINDINGS: Cardiac silhouette is enlarged. Pulmonary vascular congestion. Mild subsegmental bibasilar densities. No pneumothorax, large pleural effusion or overt pulmonary edema. Bones appear grossly intact. IMPRESSION: 1. Cardiomegaly with pulmonary vascular congestion. 2. Mild bibasilar opacities favor atelectasis. A nonspecific pneumonitis could appear similarly. CT abdomen/pelvis, CTA chest FINDINGS: CTA: Mild cardiomegaly with trace pericardial effusion. The left heart structures are not well opacified secondary to contrast bolus timing. There are numerous tiny opacified collateral veins in the anterior mediastinum and left neck. Left heart structures are not well opacified and therefore difficult to evaluate. No central pulmonary emboli identified. The segmental and subsegmental branches are not well visualized secondary to contrast bolus timing. CT CHEST: No thyroid nodule. Body wall edema. Nonspecific mildly enlarged mediastinal and hilar lymph nodes measure up to 1.3 cm. Small left with small moderate pleural effusions. No pneumothorax. Intralobular bronchial wall thickening. Dependent bibasilar groundglass densities. No suspicious pulmonary nodules or masses. Central airways are patent. No acute fracture. CT ABDOMEN/PELVIS: No free air. Unremarkable spleen, mildly atrophic pancreas and adrenal glands. Possible cholelithiasis. Heterogeneity of the liver with possible hepatic steatosis. Symmetric enhancement of the kidneys. No hydronephrosis. Decompressed urinary bladder with wall thickening. Prostatomegaly. Small fat filled inguinal hernias. Atherosclerosis of the aorta without aneurysm. Mild periportal lymphadenopathy. Mild nonspecific distal esophageal wall thickening. Rectal wall thickening with partial distention. Mild to moderate colonic fecal retention. Normal appendix. Small fat filled umbilical hernia. No acute fracture. IMPRESSION: 1. No pulmonary emboli identified. 2. Cardiomegaly with fluid overload. This includes anasarca with pulmonary edema, trace pericardial effusion, right greater than left pleural effusions with small volume of abdominopelvic ascites. 3. No bowel obstruction or pneumoperitoneum. 4. Mild nonspecific mediastinal and hilar lymphadenopathy. 5. Additional findings as above.
[2023-08-06] MEDS ORDERED: GLUCOSE 10 TAB/TUBE PO PRN (18:00)
[2023-08-06] MEDS ORDERED: GLUCOSE 40% GEL 15 GM TUBE PO PRN (18:00)
[2023-08-06] MEDS ORDERED: GLUCAGON FOR INJ 1 MG VIAL IM PRN (18:00)
[2023-08-06] MEDS ORDERED: DEXTROSE 50% 50 ML SYRINGE IV PRN (18:00)
[2023-08-06] MEDS ORDERED: CARBOHYDRATES FOR HYPOGLYCEMIA PO PRN (18:00)
[2023-08-06] MEDS ORDERED: ACETAMINOPHEN 325 MG TAB PO PRN (18:14)
[2023-08-06] MEDS: INSULIN ASPART PER UNIT CHARGE SC SCH (20:07)
[2023-08-06] MEDS: LANTUS PER UNIT CHARGE SC SCH (21:00)
[2023-08-06] MEDS: FUROSEMIDE INJ 20 MG/2 ML VIAL IV SCH (21:41)
[2023-08-07 00:47] LABS: ANTI-Xa, UFH(UnfractionatedHep < 0.10 IU/ml (0.3-0.7)
[2023-08-07] MEDS: HEPARIN SOD (PORCINE) 1000 UNIT/ML IV ONE (01:51)
--- NOTE | 2023-08-07 07:56 | Cardiology Consultation ---
Date of Consultation August 07, 2023 Assessment & Plan (1) Atrial fibrillation with RVR: (2) Acute systolic heart failure: (3) Tachycardia induced cardiomyopathy: Plan IMPRESSION: 48 year old male with new onset AFIB RVR of unknown duration. Prelim echo with mildly reduced EF and moderate MR. PLAN: New onset atrial fibrillation with acute systolic CHF: Rates remain tachycardic at times- Start metoprolol succinate 25 mg BID Given new HFrEF (possibly tachycardic induced, however ischemic cause yet to be rule out) will discontinue diltiazem. Room to titrate beta emily as needed. Patient hypervolemic on exam-- up about 30 lbs from baseline. Increase IV diuresis with Lasix 40 mg BID, will start now. K goal of 4.0 and mag goal of 2.0-- replace as needed. Will give an addition 20 meq KCL this am. Future considerations of adding Aldactone. CHADSVASC score of 1 (DM)-- Continue IV heparin for stroke prevention for new AFIB, consider Eliquis 5 mg BID at discharge. Will consider PATRIA guided DCCV however, recommend optimization from a volume standpoint first. Will follow clinically. Okay to eat. Recommend 2 g sodium diet. Daily standing weight. Strict I&O Consider outpatient nuclear stress to rule out ischemic cause, ASCVD risk factors included type 2 DM (uncontrolled), former smoker, and obesity. Case discussed with Dr. York. Further recommendations pending assessment. I spent a total of 40 minutes on the date of service in preparation, delivery, and documentation of the care provided to the patient excluding any time spent in the performance of separately billed services. MAGGIE Santiago Department of Cardiology, [facility] This chart was completed in part utilizing Speech Voice Recognition Software. Grammatical errors, random word insertions, pronoun errors, and incomplete sentences are an occasional consequence of this system due to software limitations, ambient noise, and hardware issues. Any formal questions or concerns about the content, text, or information contained within the body of this dictation should be directly addressed to the provider for clarification. Supervising Physician Co-Signing Physician Notes Patient was seen and personally examined. Full assessment and plan as outlined above by advanced provider. Care and management discussed in detail and note reflects full input 48-year-old male presents with newly observed atrial fibrillation with rapid ventricular response. Exam consistent with congestive heart failure right greater than left. Echocardiogram with mildly reduced ejection fraction and moderate mitral insufficiency possibly tachycardia mediated Weight up nearly 15 pounds in the last month Patient responded to diuretics, rate slowing Plan continue IV diuretics. Possible PATRIA guided cardioversion as noted after stabilization I spent a total of 20 minutes on the date of service in preparation, delivery, and documentation of the care provided to the patient excluding any time spent in the performance of separately billed services. History of Present Illness Reason for Consultation: AFIB RVR CHF Requesting Physician: Rachana hospitalist Attending Physician: Robert Castellon MD History of Present Illness 48-year-old male presented to [facility] emergency department yesterday with shortness of breath, lower extremity edema and abdominal bloating. Weight up about 30 pounds on home scale in the last 2 weeks. He has no known pertinent past medical history except newly diagnosed type 2 diabetes and was placed on Metformin back in June. Found to be in atrial fibrillation with RVR with rates up into the 180s. Treated with IV metoprolol and started on diltiazem drip. Heparin drip initiated. CTA of the chest and abdomen pelvis revealed pulmonary vascular congestion with pleural effusions and ascites. Given 20 mg of IV Lasix. EKG: AFIB with RVR and PVCs, 102 bpm. QTc stable. Tele: AFIB 90-150s Weight: 135 kg >>133.5 kg I&O: -450 mL Labs: Stable renal function and electrolytes Upon entrance into the room patient resting in bed. , Leia, at bedside who is also a patient of mine. Feeling mild improvement overall since admission- continues to have SYED, but breathing improved at rest. Asymptomatic with AFIB RVR. No chest pain, palpitations, dizziness, syncope or near syncope. +orthopnea and increased lower extremity edema. Abdomen distended, nontender. No fever, chills, cough, hematochezia, melena, or hemoptysis. Patient notes that his goal is to get better so he can attend '[employer]' in [place] this December as they do yearly. Past medical history: Type 2 diabetes, newly diagnosed, A1c 10.9%. Allergies Allergy/AdvReac Type Severity Reaction Status Date / Time No Known Allergies Allergy Unverified 08/06/23 17:08 Home Medications Medication Instructions Recorded Confirmed Type metformin 500 mg tablet,extended 50 mg PO QAM 08/06/23 08/06/23 History release 24 hr Patient History Medical History Diabetes mellitus type 2, noninsulin dependent Family History Father Cancer bladder Daughter Crohn's disease Social History Smoking Status: Former smoker Tobacco Type: Cigarettes Hx Alcohol Use: Yes Hx Substance Use: No Preferred Language: Montenegrin Communication Ability: Effective Edge Grinder Required: No Beliefs That Will Affect Care: None Current Living Situation: Spouse Current Living Situation Comment: Lives at home with Other Information That Helps Us Care for You: No Feels Safe at Home: Yes Safety Concerns: Feels Safe At This Time Assistive Devices: None Review of Systems Review of Systems: All systems reviewed & are unremarkable except as noted in HPI & below Physical Exam Constitutional: + ill appearing and + obese; no acute di stress Neck: normal visual inspection and trachea midline Respiratory: normal respiratory effort; no respiratory distress and no cough Auscultation: + rales; no rhonchi and no wheezes Cardiovascular: Rate/Rhythm: + tachycardic and + irregularly irregular Heart Sounds: normal S1, normal S2 and + murmur (+1/6 systolic murmur ) Vessels: + JVD Extremities: + edema (+3 BLLE pitting edema ) Gastrointestinal (Abdomen): Inspection/Auscultation: + abdomen distended Percussion/Palpation: + abdomen firm; abdomen nontender Skin: no rashes, warm and dry Neurologic: PERRL, EOMI, accommodation nl, no face palsy, no dysarthria Psychiatric: A+Ox3, euthymic affect Results & Data Vital Signs (Past 12 Hours) Vital Signs Temp Pulse Pulse Pulse Resp BP BP 08/07/23 07:28 84 08/07/23 06:30 83 08/07/23 06:00 94 H 08/07/23 05:30 80 08/07/23 05:00 81 08/07/23 04:45 91 H 08/07/23 04:30 95 H 08/07/23 04:15 84 08/07/23 04:00 93 H 08/07/23 03:45 79 08/07/23 03:30 87 08/07/23 03:15 90 08/07/23 03:00 109 H 08/07/23 02:45 89 08/07/23 02:30 87 08/07/23 02:15 94 H 08/07/23 02:00 89 08/07/23 01:45 82 08/07/23 01:30 94 H 08/07/23 01:15 81 08/07/23 01:00 91 H 08/07/23 00:45 87 08/07/23 00:15 92 H 08/07/23 00:00 83 08/06/23 23:44 99 H 08/06/23 23:15 89 08/06/23 23:00 91 H 08/06/23 22:45 86 08/06/23 22:30 91 H 08/06/23 22:00 108 H 08/06/23 21:44 08/06/23 21:30 08/06/23 21:14 08/06/23 20:40 08/06/23 20:39 98 H 08/06/23 20:36 36.4 C L 88 20 135/98 08/06/23 20:23 101 H 18 108/93 BP Pulse Ox O2 Del Method 08/07/23 07:28 08/07/23 06:30 127/85 08/07/23 06:00 132/77 08/07/23 05:30 113/71 08/07/23 05:00 123/86 08/07/23 04:45 114/85 08/07/23 04:30 118/82 08/07/23 04:15 122/83 08/07/23 04:00 128/79 08/07/23 03:45 112/77 08/07/23 03:30 113/66 08/07/23 03:15 91/64 L 08/07/23 03:00 118/87 08/07/23 02:45 97/68 L 08/07/23 02:30 121/89 08/07/23 02:15 121/82 08/07/23 02:00 122/82 08/07/23 01:45 122/86 08/07/23 01:30 117/85 08/07/23 01:15 96/65 L 08/07/23 01:00 111/76 04/15/24 00:45 108/68 08/07/23 00:15 113/79 08/07/23 00:00 114/72 08/06/23 23:44 108/70 08/06/23 23:15 114/70 08/06/23 23:00 105/72 08/06/23 22:45 103/64 08/06/23 22:30 109/68 08/06/23 22:00 123/84 08/06/23 21:44 126/85 08/06/23 21:30 125/86 08/06/23 21:14 115/79 08/06/23 20:40 Room Air 08/06/23 20:39 08/06/23 20:36 94 Room Air 08/06/23 20:23 98 Room Air Laboratory Results Cardiac Enzymes 08/06/23 Range/Units 12:58 AST 23 (13-39) U/L Troponin I High Sens 12.8 (0-20) pg/ml B-Natriuretic Peptide 222 H (0-100) pg/ml Coagulation 08/06/23 08/06/23 Range/Units 12:58 13:10 PT 12.3 H (9.0-12.0) Seconds APTT 27 (21-31) Seconds B-Natriuretic Peptide 222 H (0-100) pg/ml CBC 08/06/23 08/07/23 Range/Units 13:10 08:35 WBC Cancelled 8.52 RBC Cancelled 5.45 Hgb Cancelled 16.0 Hct Cancelled 48.6 Plt Count Cancelled 176 Neut # (Auto) Cancelled 5.39 Lymph # (Auto) Cancelled 2.26 Elbert # (Auto) Cancelled 0.66 H Eos # (Auto) Cancelled 0.11 Baso # (Auto) Cancelled 0.06 Comprehensive Metabolic Panel 08/06/23 08/07/23 Range/Units 12:58 07:51 Sodium 137 138 (136-145) mmol/L Potassium 4.3 3.9 (3.5-5.1) mmol/L Chloride 110 H 109 H (98-107) mmol/L Carbon Dioxide 19 L 20 L (21-32) mmol/L BUN 23 22 (6-23) mg/dl Creatinine 1.02 0.94 (0.6-1.4) mg/dl Glucose 231 H 210 H (70-99(Fasting)) mg/dl Calcium 9.2 8.9 (8.6-10.3) mg/dl Direct Bilirubin 0.2 (0-0.2) mg/dl AST 23 (13-39) U/L ALT 22 (7-52) U/L Alkaline Phosphatase 93 (34-104) U/L Total Protein 6.6 (6.0-8.3) gm/dl Albumin 4.1 (3.4-5.0) gm/dl Intake and Output 08/06/23 08/07/23 08/07/23 22:59 06:59 14:59 Intake Total 577.584 / 764.917 187.333 / 764.917 209.733 / 209.733 Output Total 950 / 1425 475 / 1425 Balance -372.416 / -660.083 -287.667 / -660.083 209.733 / 209.733 Intake: IV 577.584 / 764.917 187.333 / 764.917 209.733 / 209.733 Heparin Sodium/Dextrose 25,000 141.333 / 141.333 209.733 / 209.733 units In 500 ml @ 1,300 UNITS/ HR 26 mls/hr IV [id number] [facility] Rx #:[id number] Sodium Chloride 0.9% 500 ml @ 500 / 500 999 mls/hr IV .Q31M ONE Rx#: [id number] dilTIAZem HCL 125 mg In 77.584 / 123.584 46 / 123.584 Dextrose 5% 100 ml @ 10 MG/HR 10 mls/hr IV .[id number] [facility] Rx#: [id number] Oral 0 / 0 Output: Urine 950 / 1425 475 / 1425 Other: # Unmeasured Voids 1 3 Weight 135.125 kg 133.5 kg Weight Measurement Method Standing Scale Standing Scale
[2023-08-07 08:32] LABS: BUN Creatinine Ratio 23.4 (10-20); Calcium 8.9 mg/dl (8.6-10.3); Creatinine Clr Calc Pharmacy 136.6 ml/min; Est GFR (African American) 109.1 ml/min; Est GFR (Non-African American) 94.2 ml/min; Phosphorus 4.1 mg/dl (2.5-4.9); Potassium 3.9 mmol/L (3.5-5.1)
[2023-08-07 08:43] LABS: ANTI-Xa, UFH(UnfractionatedHep 0.22 IU/ml (0.3-0.7)
[2023-08-07 09:00] LABS: Hematocrit (blood only) 48.6 % (42.0-52.0); Mean Corpuscular Hemoglobin 29.4 pg (25.0-34.0); Mean Corpuscular Hgb Conc 32.9 g/dL (32.0-36.0); Mean Corpuscular Volume 89.2 fL (80.0-100.0); Mean Platelet Volume 13.5 fL (9.4-12.4); Platelet Count 176 K/uL (130-400); RDW Coefficient of Variation 13.3 % (11.5-14.5); RDW Standard Deviation 43.8 fL (36.4-46.3); Red Blood Count 5.45 M/uL (4.70-6.10); White Blood Count 8.52 K/ul (4.8-10.8)
--- NOTE | 2023-08-07 09:02 | Electrocardiogram Report ---
Test Reason : Blood Pressure : / mmHG Vent. Rate : 102 BPM Atrial Rate : 357 BPM P-R Int : 000 ms QRS Dur : 090 ms QT Int : 320 ms P-R-T Axes : 000 093 111 degrees QTc Int : 417 ms Atrial fibrillation with rapid ventricular response with premature ventricular or aberrantly conducte d complexes Rightward axis Nonspecific T wave abnormality Abnormal ECG When compared with ECG of 06-AUG-2023 12:55, Vent. rate has decreased BY 74 BPM Confirmed by Nicho Nelson ([id number]) on 08/07/2023 9:01:45 AM Referred By: REFERRED SELF Confirmed By:Lebron Nelson
[2023-08-07 09:31] LABS: Estimated Average Glucose 263 mg/dl; Hemoglobin A1C 10.8 % (4.5-5.6)
[2023-08-07] MEDS: FUROSEMIDE INJ 20 MG/2 ML VIAL IV SCH (10:18)
[2023-08-07] MEDS: POTASSIUM CHLORIDE CRTAB 20 MEQ TABCR PO STA (10:18)
[2023-08-07] MEDS: METOPROLOL SUCC 25MG EXT REL TAB PO SCH (10:19)
[2023-08-07] MEDS ORDERED: Nursing to Pharmacy Communication SCH (11:00)
[2023-08-07] MEDS: INSULIN ASPART PER UNIT CHARGE SC SCH (12:52)
[2023-08-07] MEDS: LANTUS PER UNIT CHARGE SC SCH ×2 (12:53→21:11)
--- NOTE | 2023-08-07 14:20 | Pharmacy Report ---
Pharmacy Glycemic Short Note 2 - Date of Service August 07, 2023 - Glycemic Short BSG Results (Last 24 hours): 08/06/23 08/06/23 08/06/23 19:50 20:55 23:59 Glucose POC Glucose 210 H 204 H 220 H 08/07/23 08/07/23 08/07/23 05:55 07:51 11:12 Glucose 210 H POC Glucose 189 H 186 H OUTPATIENT ANTIDIABETIC REGIMEN: * Metformin ER 500 mg PO daily HbA1c: 10.8% (08/07/23) ASSESSMENT: * WW is a 48 year old male w/ very poorly controlled T2DM as an outpatient now admitted with Afib w/ RVR * Receiving heparin gtt (mixed in dextrose) * Insulin orders placed, but patient is refusing all insulin administrations at this time. Hospitalist aware. * At this time, hospitalist does not wish to resume patient's home metformin in lieu of insulin * Blood sugars elevated (~180-190 mg/dL today) * CDE consulted PLAN FOR INPATIENT GLYCEMIC CONTROL: * Hold outpatient oral diabetes medications * Basal insulin * Lantus 10 units SC HS * Bolus insulin * NovoLog per scale ACHS or Q6hrs while NPO * Goal Range: Low 110 mg/dL - High 140 mg/dL * Correction Factor: 30 mg/dL/unit * Nutritional / Prandial insulin per carb ratio of 1 unit per 10 grams CHO consumed
--- NOTE | 2023-08-07 14:40 | Hospitalist Progress Note ---
Date of Service August 07, 2023 Assessment & Plan (1) Tachycardia induced cardiomyopathy: (2) Atrial fibrillation with RVR: (3) New onset atrial fibrillation: Plan: Patient is a 48-year-old male with newly diagnosed type 2 diabetes mellitus who presents to the hospital with fatigue and shortness of breath Atrial fibrillation with RVR Tachycardia induced cardiomyopathy Chest x-ray on admission personally reviewed; pulm. vasc. congestion CT abdomen and chest also obtained - no PE - but c/w cardiomegaly, pl. effusion, trace pericard. effusion, anasarca EKG on admission personally reviewed; A-fib with ventricular rate of 176 Echocardiogram shows EF of 45 to 50% with mild global hypokinesis of left ventricle. Started on Cardizem drip for rate control in ED. Switched over to metoprolol succinate 25 mg twice a day On heparin drip for stroke prophylaxis. Will need DOAC at discharge N.p.o. for midnight for possible PATRIA with cardioversion. Strict input and output monitoring Telemetry monitoring (4) Diabetes mellitus type 2, noninsulin dependent: Plan: Hgb A1c 10.9% in June 2023 - recent diagnosis - was on metformin; stopped as he reports that he started to have generalized swelling and shortness of breath. Discussed with patient that metformin does not have a side effect profile of generalized swelling or shortness of breath. Patient willing to try metformin at discharge. Patient has refused insulin while inpatient. Plan Full code DVT prophylaxis heparin drip Time spent evaluating patient, direct bedside care, chart review, placing orders, interpretation of diagnostic studies, discussion with consultants, patient, and family members, as well as other required patient management activities is 60 minutes Please note the above document was generated using voice recognition software. It may contain grammatical, syntax or spelling errors. Any formal questions or concerns about the content, text or information contained within the body of this dictation should be directly addressed to the provider for clarification Admission and Anticipated Discharge Date Admission Date: August 06, 2023 Subjective Patient seen and examined at bedside. He reports that he is feeling better; not in distress Urine output improving today with output of 3200 cc. Review of Systems Review of Systems: All systems reviewed & are unremarkable except as noted in Subjective Physical Exam Physical Exam: Constitutional: Alert oriented x 3; not in distress. Respiratory: Bilateral vesicular breath sound Cardiovascular: RRR, no murmur, no edema Vessels: no JVD or carotid bruit Chest: normal inspection of chest Abdomen: normal bowel sounds, soft, nontender, no hepatosplenomegaly Musculoskeletal: no cyanosis or clubbing, extremities motor strength 5/5 Skin: no rashes, warm and dry normal turgor Neurologic: PERRL, EOMI, accommodation nl, no face palsy, no dysarthria CN's II- XI intact bilaterally and moves all extremities Psychiatric: A+Ox3, euthymic affect Results & Data Results & Data Vital Signs (Past 12 Hours) Vital Signs Temp Pulse Pulse Resp BP Pulse Ox O2 Del Method 08/07/23 11:58 36.3 C L 82 17 135/89 96 Room Air 08/07/23 09:09 Room Air 08/07/23 08:08 36.5 C 84 18 113/69 93 Room Air 08/07/23 08:02 113/69 08/07/23 07:28 84 08/07/23 06:30 83 127/85 08/07/23 06:00 94 H 132/77 08/07/23 05:30 80 113/71 08/07/23 05:00 81 123/86 08/07/23 04:45 91 H 114/85 08/07/23 04:30 95 H 118/82 08/07/23 04:15 84 122/83 08/07/23 04:00 93 H 128/79 08/07/23 03:45 79 112/77 08/07/23 03:30 87 113/66 08/07/23 03:15 90 91/64 L 08/07/23 03:00 109 H 118/87 08/07/23 02:45 89 97/68 L
[2023-08-07] MEDS: METOPROLOL SUCC 50MG EXT REL TAB PO SCH (16:50)
[2023-08-07] MEDS: METOPROLOL TARTRATE 1 MG/ML VIAL IV STA (20:20)
[2023-08-07] MEDS: METOPROLOL TARTRATE 25 MG TAB PO STA (20:43)
[2023-08-07 23:26] LABS: ANTI-Xa, UFH(UnfractionatedHep 0.22 IU/ml (0.3-0.7)
[2023-08-08 06:12] LABS: Hematocrit (blood only) 46.4 % (42.0-52.0); Hemoglobin 15.9 g/dl (14.0-18.0); Mean Corpuscular Hemoglobin 29.8 pg (25.0-34.0); Mean Corpuscular Hgb Conc 34.3 g/dL (32.0-36.0); Mean Corpuscular Volume 86.9 fL (80.0-100.0); Platelet Count 181 K/uL (130-400); RDW Coefficient of Variation 12.9 % (11.5-14.5); RDW Standard Deviation 40.6 fL (36.4-46.3); Red Blood Count 5.34 M/uL (4.70-6.10); White Blood Count 7.73 K/ul (4.8-10.8)
[2023-08-08 06:25] LABS: ANTI-Xa, UFH(UnfractionatedHep 0.23 IU/ml (0.3-0.7)
[2023-08-08 06:28] LABS: Calcium 8.8 mg/dl (8.6-10.3); Magnesium 1.9 mg/dl (1.7-2.4); Potassium 3.6 mmol/L (3.5-5.1)
[2023-08-08 06:34] LABS: BUN Creatinine Ratio 17.3 (10-20); Creatinine Clr Calc Pharmacy 116.5 ml/min; Est GFR (African American) 90.2 ml/min; Est GFR (Non-African American) 77.9 ml/min; Phosphorus 3.7 mg/dl (2.5-4.9)
--- NOTE | 2023-08-08 07:12 | Cardiology Progress Note ---
Date of Service August 08, 2023 Assessment & Plan (1) Atrial fibrillation with RVR: (2) Acute systolic heart failure: (3) Tachycardia induced cardiomyopathy: Plan IMPRESSION: 48 year old male with new onset AFIB RVR of unknown duration. Mildly reduced LVEF of 45 to 50% with moderate MR. Possibly tachycardic induced. Ongoing elevated HR. PLAN: New onset atrial fibrillation with acute systolic CHF: Rates remain tachycardic-increase metoprolol succinate to 75 mg twice daily. Hypervolemic on exam, responding well to IV Lasix, increase to 40 mg twice daily K goal of 4.0 and mag goal of 2.0--started patient on 40 meq of KCl daily. Add Aldactone 12.5 mg daily CHADSVASC score of 1 (DM)-- Continue IV heparin for stroke prevention for new AFIB, consider Eliquis 5 mg BID at discharge. Plans for PATRIA guided DCCV Monday, however, recommend optimization from a volume standpoint first. Will plan for NPO at midnight. Otherwise, recommend 2 g sodium diet. Daily standing weight. Strict I&O Consider outpatient nuclear stress to rule out ischemic cause, ASCVD risk factors included type 2 DM (uncontrolled), former smoker, and obesity. Recommend nocturnal pulse ox study prior to discharge with formal sleep study as an outpatient. Case discussed with Dr. York. Further recommendations pending assessment. I spent a total of 30 minutes on the date of service in preparation, delivery, and documentation of the care provided to the patient excluding any time spent i n the performance of separately billed services. MAGGIE Santiago Department of Cardiology, [facility] This chart was completed in part utilizing Speech Voice Recognition Software. Grammatical errors, random word insertions, pronoun errors, and incomplete sentences are an occasional consequence of this system due to software limitations, ambient noise, and hardware issues. Any formal questions or concerns about the content, text, or information contained within the body of this dictation should be directly addressed to the provider for clarification. Admission and Anticipated Discharge Date Admission Date: August 06, 2023 Supervising Physician Co-Signing Physician Notes Patient seen and personally examined. I discussed and agree with plans as outlined above by advanced provider and take responsibility for plan of care Patient is a 48-year-old male presents with subacute onset of atrial fibrillation likely weeks in duration with elevated ventricular response and probable rate related cardiomyopathy. Plan as already outlined above continue gradual upward titration of beta-emily Treat volume overload right heart greater than left with IV diuretics, add Aldactone. Check nocturnal oximetry this evening Patient scheduled for PATRIA guided cardioversion in a.m. Avoiding antiarrhythmic therapy at this time pending results of PATRIA and cardioversion result I spent a total of 30 minutes on the date of service in preparation, delivery, and documentation of the care provided to the patient excluding any time spent in the performance of separ Subjective 48-year-old male who presented with newly observed atrial fibrillation with rapid ventricular response. Exam consistent with congestive heart failure right greater than left. Hypervolemic on exam, started on a modest dose of Lasix 20 mg daily. Echo with mildly reduced EF (45 to 50%) and moderate mitral insufficiency, possibly tachycardic mediated. 08/07/2023 Diltiazem discontinued. Metoprolol succinate 25 mg twice daily started and increased to 50 mg twice daily. IV heparin for stroke prevention in the setting of new A-fib IV Lasix increased to 40 mg daily 08/08/2023 Telemetry: AFIB RVR 150-180s I/O: -3.1 L (total), -2.5 L (last 24 hours) Weight: 135.1 kg >> 133 kg Labs: Renal function stable. Potassium low normal at 3.6. Mag 1.9. Upon entrance into the room patient resting in bed. No acute concerns. Remains asymptomatic with elevated HR in AFIB. Did not yet receive his meds this am. No chest pain, shortness of breath, palpitations, dizziness, syncope or near syncope. +Mild orthopnea. Ongoing increased lower extremity edema. No fever, chills, cough, hematochezia, melena, or hemoptysis. Review of Systems Review of Systems: All systems reviewed & are unremarkable except as noted in HPI & below Physical Exam Constitutional: + obese; no acute distress Neck: normal visual inspection and trachea midline Respiratory: normal respiratory effort; no respiratory distress and no cough Auscultation: + rales; no rhonchi and no wheezes Cardiovascular: Rate/Rhythm: + tachycardic and + irregularly irregular Heart Sounds: normal S1, normal S2 and + murmur (+1/6 systolic murmur ) Vessels: + JVD Extremities: + edema (+2 BLLE pitting edema ) Gastrointestinal (Abdomen): Inspection/Auscultation: + abdomen distended Percussion/Palpation: + abdomen firm; abdomen nontender Skin: no rashes, warm and dry Neurologic: PERRL, EOMI, accommodation nl, no face palsy, no dysarthria Psychiatric: A+Ox3, euthymic affect Results & Data Vital Signs (Past 12 Hours) Vital Signs Temp Pulse Pulse Pulse Resp BP BP 08/08/23 05:43 128 H 08/08/23 03:20 36.5 C 85 18 124/93 08/07/23 23:37 36.3 C L 69 20 113/74 08/07/23 21:58 142 H 08/07/23 20:35 123 H 135/86 08/07/23 20:20 150 H 156/90 H 08/07/23 20:14 36.4 C L 81 20 119/68 08/07/23 20:00 Pulse Ox O2 Del Method 08/08/23 05:43 08/08/23 03:20 93 Room Air 08/07/23 23:37 92 Room Air 08/07/23 21:58 08/07/23 20:35 08/07/23 20:20 08/07/23 20:14 95 Room Air 08/07/23 20:00 Room Air Laboratory Results CBC 08/07/23 08/07/23 08/08/23 Range/Units 07:51 08:35 05:44 WBC Cancelled 8.52 7.73 RBC Cancelled 5.45 5.34 Hgb Cancelled 16.0 15.9 Hct Cancelled 48.6 46.4 Plt Count Cancelled 176 181 Neut # (Auto) Cancelled Lymph # (Auto) Cancelled Ness # (Auto) Cancelled Eos # (Auto) Cancelled Baso # (Auto) Cancelled Comprehensive Metabolic Panel 08/08/23 Range/Units 05:44 Sodium 135 L (136-145) mmol/L Potassium 3.6 (3.5-5.1) mmol/L Chloride 105 (98-107) mmol/L Carbon Dioxide 22 (21-32) mmol/L BUN 19 (6-23) mg/dl Creatinine 1.10 (0.6-1.4) mg/dl Glucose 186 H (70-99(Fasting)) mg/dl Calcium 8.8 (8.6-10.3) mg/dl Intake and Output 08/07/23 08/08/23 08/08/23 22:59 06:59 14:59 Intake Total 1219.2 / 2114.000 467.800 / 2114.000 Output Total 1580 / 4580 800 / 4580 250 / 250 Balance -360.8 / -2466.000 -332.200 / -2466.000 -250 / -250 Intake: IV 39.2 / 934.000 467.800 / 934.000 Heparin Sodium/Dextrose 25,000 39.2 / 865.667 467.800 / 865.667 units In 500 ml @ 1,600 UNITS/ HR 32 mls/hr IV .[id number] [facility] Rx #:[id number] Oral 1180 / 1180 Output: Urine 1580 / 4580 800 / 4580 250 / 250 Other: Weight 133 kg Weight Measurement Method Standing Scale
--- NOTE | 2023-08-08 07:39 | Pharmacy Report ---
Pharmacy Glycemic Sign Off Nt - Date of Service August 08, 2023 - Assessment & Plan ASSESSMENT: * Pharmacy was consulted by Dr Porter on 08/06/23 for glycemic control and to write orders per [facility] inpatient glycemic control protocol. * Major changes made by pharmacy to antidiabetic regimen include: * addition of SC basal/bolus regimen * Patient has been refusing all insulin while inpatient (please see CDE note for details) * BSGs ranging 152-225 mg/dl PLAN FOR INPATIENT GLYCEMIC CONTROL: No changes needed to current regimen. Will leave current orders active despite current refusal. * Continue basal insulin with Lantus 10 units SC HS * Continue NovoLog per scale ACHS/Q6hrs while NPO * Goal range = 110-140 mg/dl * CF = 30 mg/dl/unit * CR = 1 unit for ever 10 g CHO consumed * Pharmacy is signing off of glycemic consult and will no longer be making adjustments to inpatient regimen. Please feel free to re-consult if needed. Thank you.
[2023-08-08] MEDS: MAGNESIUM OXIDE 400 MG TAB PO ONE (08:03)
[2023-08-08] MEDS ORDERED: FUROSEMIDE 40 MG/4 ML VIAL IV SCH (09:00)
[2023-08-08] MEDS: FUROSEMIDE 40 MG/4 ML VIAL IV SCH (10:09)
[2023-08-08] MEDS: METOPROLOL SUCC 25MG EXT REL TAB PO SCH (10:10)
[2023-08-08] MEDS: POTASSIUM CHLORIDE CRTAB 20 MEQ TABCR PO SCH (10:11)
[2023-08-08] MEDS: SPIRONOLACTONE 12.5 MG TAB PO SCH (12:22)
--- NOTE | 2023-08-08 12:36 | Hospitalist Progress Note ---
Date of Service August 08, 2023 Assessment & Plan (1) Tachycardia induced cardiomyopathy: (2) Atrial fibrillation with RVR: (3) New onset atrial fibrillation: Plan: Patient is a 48-year-old male with newly diagnosed type 2 diabetes mellitus who presents to the hospital with fatigue and shortness of breath Atrial fibrillation with RVR Tachycardia induced cardiomyopathy Acute on chronic moderately reduced EF Chest x-ray on admission personally reviewed; pulm. vasc. congestion CT abdomen and chest also obtained - no PE - but c/w cardiomegaly, pl. effusion, trace pericard. effusion, anasarca EKG on admission personally reviewed; A-fib with ventricular rate of 176 Echocardiogram shows EF of 45 to 50% with mild global hypokinesis of left ventricle. Started on Cardizem drip for rate control in ED. Switched over to metoprolol succinate 75 mg twice a day On heparin drip for stroke prophylaxis. Will need DOAC at discharge. Eliquis clark is over $140; prescription for Xarelto sent; resident care supervisor to check on clark On IV Lasix 40 mg twice daily N.p.o. for midnight for possible PATRIA with cardioversion. Strict input and output monitoring Telemetry monitoring (4) Diabetes mellitus type 2, noninsulin dependent: Plan: Hgb A1c 10.9% in June 2023 - recent diagnosis - was on metformin; stopped as he reports that he started to have generalized swelling and shortness of breath. agricultural extension educator consulted; plan to start Jardiance 10 mg daily at discharge. Patient reports compliant with diabetic diet. He may need additional agent as outpatient Patient has been refusing subcu insulin while inpatient. Education provided; continues to refuse. Plan Full code DVT prophylaxis heparin drip Time spent evaluating patient, direct bedside care, chart review, placing orders, interpretation of diagnostic studies, discussion with consultants, patient, and family members, as well as other required patient management activities is 50 minutes Please note the above document was generated using voice recognition software. It may contain grammatical, syntax or spelling errors. Any formal questions or concerns about the content, text or information contained within the body of this dictation should be directly addressed to the provider for clarification Admission and Anticipated Discharge Date Admission Date: August 06, 2023 Subjective Patient seen and examined at bedside. Comfortable; not in distress. Denies fever, chills, chest pain, shortness of breath, abdominal pain or urinary symptoms. No significant overnight events Telemetry shows atrial fibrillation with RVR of 1 20-1 60 Review of Systems Review of Systems: All systems reviewed & are unremarkable except as noted in Subjective Physical Exam Physical Exam: Constitutional: Alert oriented x 3; not in distress. Respiratory: Bilateral vesicular breath sound Cardiovascular: RRR, no murmur, no edema Vessels: no JVD or carotid bruit Chest: normal inspection of chest Abdomen: Slightly distended. Nontender. Musculoskeletal: no cyanosis or clubbing, extremities motor strength 5/5. 1+ pitting edema Skin: no rashes, warm and dry normal turgor Neurologic: PERRL, EOMI, accommodation nl, no face palsy, no dysarthria CN's II-XI intact bilaterally and moves all extremities Psychiatric: A+Ox3, euthymic affect Results & Data Results & Data Vital Signs (Past 12 Hours) Vital Signs Temp Pulse Pulse Pulse Resp BP BP 08/08/23 11:35 37.0 C 85 18 107/76 08/08/23 10:04 119 H 124/91 08/08/23 07:40 36.2 C L 90 18 120/79 08/08/23 07:20 120 H 08/08/23 05:43 128 H 08/08/23 03:20 36.5 C 85 18 124/93 Pulse Ox O2 Del Method 08/08/23 11:35 97 Room Air 08/08/23 10:04 97 Room Air 08/08/23 07:40 94 Room Air 08/08/23 07:20 08/08/23 05:43 08/08/23 03:20 93 Room Air
--- NOTE | 2023-08-08 12:57 | Anesthesiology Consultation ---
Date of Service August 08, 2023 Assessment & Plan (1) Encounter for pre-operative examination: Chart Review Chart Review: Acceptable Risk for Surgery History Surgery Operation Date: 08/09/23 07:30 Proposed Procedures p Transesophageal Echo w/Anesthesia - Liban York MD Height/Weight Height: 6 ft 2 in Weight: 133 kg Allergies Allergy/AdvReac Type Severity Reaction Status Date / Time No Known Allergies Allergy Unverified 08/06/23 17:08 Medications Home Medications Medication Instructions Recorded Confirmed Last Taken metformin 500 mg tablet,extended 50 mg PO QAM 08/06/23 08/06/23 Unknown release 24 hr rivaroxaban 20 mg tablet (Xarelto) 20 mg PO DAILY #30 tabs 08/08/23 Unknown Active Medications Generic Name Dose Route Start Last Admin Trade Name Freq PRN Reason Stop Dose Admin Furosemide 40 mg 08/08/23 09:00 08/08/23 10:09 Furosemide 40 Mg/4 Ml Vial IV 09/07/23 08:59 40 mg [id number] LALITHA Administration Heparin Sodium/Dextrose 25,000 units in 500 mls @ 34 mls/hr 08/06/23 17:45 08/08/23 06:56 Heparin Sodium/Dextrose IV 09/05/23 17:44 1,700 units/hr .[id number] LALITHA 34 mls/hr Titration Protocol 1,700 UNITS/HR Insulin Aspart 0 units 08/07/23 11:30 08/08/23 11:55 Insulin Aspart Per Unit Charge SC 09/05/23 17:59 5 units ACHS LALITHA Administration Insulin Glargine 10 units 08/07/23 21:00 08/07/23 21:11 Lantus Per Unit Charge SC 09/06/23 20:59 Not Given HS LALITHA Metoprolol Succinate 75 mg 08/08/23 09:00 08/08/23 10:10 Metoprolol Succ 25mg Ext Rel Tab PO 09/07/23 08:59 75 mg BID LALITHA Administration Potassium Chloride 40 meq 08/08/23 09:00 08/08/23 10:11 Potassium Chloride Crtab 20 Meq Tabcr PO 09/07/23 08:59 40 meq QAM LALITHA Administration Spironolactone 12.5 mg 08/08/23 11:15 08/08/23 12:22 Spironolactone 12.5 Mg Tab PO 09/07/23 11:14 12.5 mg DAILY LALITHA Administration Past Medical History Medical History (Updated 08/08/23 @ 12:59 by Dario Conti MD) Acute systolic heart failure Mediastinal lymphadenopathy Pleural effusion, bilateral Atrial fibrillation with RVR Hypertension Diabetes mellitus type 2, noninsulin dependent Past Family History Family History Father Cancer bladder Daughter Crohn's disease Social History Smoking Status: Former smoker Hx Alcohol Use: Yes alcohol intake frequency: holidays/special occasions only Hx Substance Use: No Physical Exam Vital Signs Last Vital Signs Temp 37.0 C 08/08/23 11:35 Pulse 85 08/08/23 11:35 Resp 18 08/08/23 11:35 BP 107/76 08/08/23 11:35 Pulse Ox 97 08/08/23 11:35 O2 Del Method Room Air 08/08/23 11:35 Testing Laboratory Results 08/08/23 05:44 08/08/23 05:44 PT 12.3 Seconds (9.0-12.0) H 08/06/23 13:10 INR 1.1 (0.9-1.1) 08/06/23 13:10 APTT 27 Seconds (21-31) 08/06/23 13:10 Hemoglobin A1c 10.8 % (4.5-5.6) H 08/07/23 07:51 08/08/23 08/08/23 11:25 07:20 POC Glucose 140 H 152 H Echocardiogram Date: 08/07/23 EF: 45-50% Valvular Disease: + MR (moderate)
[2023-08-08 13:06] LABS: ANTI-Xa, UFH(UnfractionatedHep 0.23 IU/ml (0.3-0.7)
--- NOTE | 2023-08-08 13:47 | Electrocardiogram Report ---
Test Reason : Blood Pressure : / mmHG Vent. Rate : 121 BPM Atrial Rate : 115 BPM P-R Int : 000 ms QRS Dur : 090 ms QT Int : 322 ms P-R-T Axes : 000 105 031 degrees QTc Int : 457 ms Atrial fibrillation with rapid ventricular response Rightward axis Nonspecific T wave abnormality Abnormal ECG When compared with ECG of 07-AUG-2023 08:20, No significant change was found Confirmed by Nicho Nelson ([id number]) on 08/08/2023 1:47:44 PM Referred By: REFERRED SELF Confirmed By:Lebron Nelson
[2023-08-08 16:43] LABS: BUN Creatinine Ratio 19.8 (10-20); Creatinine Clr Calc Pharmacy 126.9 ml/min; Est GFR (African American) 100.1 ml/min; Est GFR (Non-African American) 86.3 ml/min; Potassium 3.8 mmol/L (3.5-5.1)
[2023-08-08 20:22] LABS: ANTI-Xa, UFH(UnfractionatedHep 0.33 IU/ml (0.3-0.7)
[2023-08-09] MEDS ORDERED: LIDOCAINE 2% 2 ML VIAL/AMP(20MG/ML) INFIL ONE (06:56)
[2023-08-09] MEDS ORDERED: PROPOFOL IV EMULSION 10 MG/ML 20 ML VIAL IV ONE (06:56)
--- NOTE | 2023-08-09 07:03 | Cardiology Progress Note ---
Date of Service August 09, 2023 Assessment & Plan (1) Atrial fibrillation with RVR: (2) Acute systolic heart failure: (3) Tachycardia induced cardiomyopathy: Plan IMPRESSION: 48 year old male with new onset AFIB RVR of unknown duration. Mildly reduced LVEF of 45 to 50% with moderate MR. Possibly tachycardic induced. Status post PATRIA guided cardioversion with successful conversion to sinus rhythm, 08/09/2023. PLAN: New onset atrial fibrillation with acute systolic CHF: Continue metoprolol succinate 75 mg twice daily Responding well to IV direusis, still mildly hypervolemic with mild lower extremity edema and crackles in BL lung bases-- continue 40mg IV Lasix BID today, consider transitioning to oral in the next 24 hours. K goal of 4.0 and mag goal of 2.0--started patient on 40 meq of KCl daily. Continue Aldactone 12.5 mg daily. Add Lisinopril 2.5 mg daily for GDMT titration and renal protection in the setting of DM CHADSVASC score of 1 (DM)--Discontinue IV heparin and transition to Eliquis 5 mg twice daily. Consult case management for cost assistance. Daily standing weight. Strict I&O. 2 g sodium diet. Consider outpatient nuclear stress to rule out ischemic cause, ASCVD risk factors included type 2 DM (uncontrolled), former smoker, and obesity. Inpatient nocturnal pulse ox study positive for nocturnal hypoxemia. Will need formal sleep study as an outpatient. Recommend outpatient sleep medicine referral. Case discussed with Dr. York. Further recommendations pending assessment. I spent a total of 30 minutes on the date of service in preparation, delivery, and documentation of the care provided to the patient excluding any time spent in the performance of separately billed services. MAGGIE Santiago Department of Cardiology, [facility] This chart was completed in part utilizing Speech Voice Recognition Software. Grammatical errors, random word insertions, pronoun errors, and incomplete sentences are an occasional consequence of this system due to software limitations, ambient noise, and hardware issues. Any formal questions or concerns about the content, text, or information contained within the body of this dictation should be directly addressed to the provider for clarification. Admission and Anticipated Discharge Date Admission Date: August 06, 2023 Supervising Physician Co-Signing Physician Notes Patient was seen and personally examined both prior to and after transesophageal echocardiogram guided cardioversion. Patient had successful conversion to sinus rhythm PATRIA demonstrated mild reduced ejection fraction and moderate MR and TR which appears to rate related Plan as outlined above. Plan and care discussed personally with advanced provider and endorsed I spent a total of 30 minutes on the date of service in preparation, delivery, and documentation of the care provided to the patient excluding any time spent in the performance of separately billed ser Subjective 48-year-old male who presented with newly observed atrial fibrillation with rapid ventricular response. Exam consistent with congestive heart failure right greater than left. Hypervolemic on exam, started on a modest dose of Lasix 20 mg daily. Echo with mildly reduced EF (45 to 50%) and moderate mitral insufficiency, possibly tachycardic mediated. 08/07/2023 Diltiazem discontinued. Metoprolol succinate 25 mg twice daily started and increased to 50 mg twice daily. IV heparin for stroke prevention in the setting of new A-fib IV Lasix increased to 40 mg daily 08/08/2023 A-fib RVR 150s to 180s, metoprolol succinate increased to 1275 mg twice daily IV heparin for anticoagulation IV Lasix increased to 40 mg twice daily with the addition of Aldactone 12.5 mg d aily Nocturnal oximetry report was positive for nocturnal hypoxemia 08/09/2023 Status post PATRIA guided cardioversion. Underwent single 200 J biphasic shock with successful conversion to sinus rhythm. Telemetry: Now maintaining NSR 80s EKG 08/08: AFIB RVR 118 bpm EKG 08/08 (post cardioversion) sinus rhythm, 79 bpm. I/O: -8.6 L (total), -5.6 L (last 24 hours) Weight: 135.1 kg >> 133 >>1273.8 kg Labs: PENDING Upon entrance into the room patient resting in bed. No acute concerns. Now maintaining NSR on telemetry. Feels subjectively improved. No chest pain, shortness of breath, palpitations, dizziness, syncope or near syncope. No orthopnea. Mild lower extremity ankle edema. Abdomen less distended. No fever, chills, cough, hematochezia, melena, or hemoptysis. Review of Systems Review of Systems: All systems reviewed & are unremarkable except as noted in HPI & below Physical Exam Constitutional: + ill appearing and + obese; no acute di stress Neck: normal visual inspection and trachea midline Respiratory: normal respiratory effort; no respiratory distress and no cough Auscultation: + rales (BL bases ); no rhonchi and no wheezes Cardiovascular: Rate/Rhythm: regular rate and regular rhythm Heart Sounds: normal S1, normal S2 and + murmur (+1/6 systolic murmur ) Vessels: no JVD Extremities: + pedal edema (+1) and + edema (+1 BLLE pitting edema ) Gastrointestinal (Abdomen): Inspection/Auscultation: abdomen not distended Percussion/Palpation: abdomen soft; abdomen nontender Skin: no rashes, warm and dry Neurologic: PERRL, EOMI, accommodation nl, no face palsy, no dysarthria Psychiatric: A+Ox3, euthymic affect Results & Data Vital Signs (Past 12 Hours) Vital Signs Temp Pulse Pulse Pulse Resp BP Pulse Ox 08/09/23 06:07 67 08/09/23 02:35 36.8 C 110 H 18 120/78 98 08/08/23 22:09 36.4 C L 96 H 18 119/86 95 08/08/23 22:01 138 H 08/08/23 21:45 64 08/08/23 19:27 170 H 124/93 08/08/23 19:11 08/08/23 19:01 36.4 C L 99 H 18 107/83 95 Pulse Ox O2 Del Method O2 Del Method 08/09/23 06:07 93 Room Air 08/09/23 02:35 Room Air 08/08/23 22:09 Room Air 08/08/23 22:01 08/08/23 21:45 95 Room Air 08/08/23 19:27 08/08/23 19:11 Room Air 08/08/23 19:01 Room Air
--- NOTE | 2023-08-09 07:49 | Anesthesiology Progress Note ---
Date of Service August 09, 2023 Anesthesia Post Procedure Vital Signs Vital Signs: Temp Pulse Pulse Pulse Pulse Resp BP 08/09/23 07:10 143 H 18 08/09/23 06:07 67 08/09/23 02:35 36.8 C 110 H 18 08/08/23 22:09 36.4 C L 96 H 18 08/08/23 22:01 138 H 08/08/23 21:45 64 08/08/23 19:27 170 H 08/08/23 19:11 08/08/23 19:01 36.4 C L 99 H 18 08/08/23 15:39 129 H 08/08/23 15:36 36.4 C L 88 18 08/08/23 11:35 37.0 C 85 18 08/08/23 10:04 119 H 124/91 BP Pulse Ox Pulse Ox O2 Del Method O2 Del Method 08/09/23 07:10 129/86 92 Room Air 08/09/23 06:07 93 Room Air 08/09/23 02:35 120/78 98 Room Air 08/08/23 22:09 119/86 95 Room Air 08/08/23 22:01 08/08/23 21:45 95 Room Air 08/08/23 19:27 124/93 08/08/23 19:11 Room Air 08/08/23 19:01 107/83 95 Room Air 08/08/23 15:39 08/08/23 15:36 124/83 92 Room Air 08/08/23 11:35 107/76 97 Room Air 08/08/23 10:04 97 Room Air Transfer of Care Handoff Completed per policy Notes Mental Status: alert / awake / arousable and participated in evaluation Patient Amnestic to Procedure: Yes Nausea / Vomiting: adequately controlled Pain: adequately controlled Airway Patency, RR, SpO2: stable & adequate BP & HR: stable & adequate Hydration State: stable & adequate Anesthetic Complications: no major complications apparent and Pt Satisfied with anesthetic care
--- NOTE | 2023-08-09 07:57 | Cardioversion ---
Date of Service August 09, 2023 Electrical Cardioversion Rpt Electrical Cardioversion Report PATRIA guided synchronized electrical cardioversion Indications: Atrial fibrillation with rapid ventricular response, rate related cardiomyopathy Procedure: Procedure and risk explained in detail to the patient, informed consent obtained. Patient sedated via anesthesia consultation with continuous heart rate blood pressure and oxygen saturation monitoring. Posterior oropharynx anesthetized topically with Cetacaine spray. Transesophageal echocardiography probe passed without incident and imaging obtained. No contraindications to synchronized electrical cardioversion present Single 200 J biphasic shock administered with successful conversion to sinus rhythm. Patient aroused post procedure having tolerated procedure well
[2023-08-09] MEDS: BENZOCAINE/TETRACAIN/BUTAM 50 APPLN/5 GM CAN EXT ONE (09:04)
[2023-08-09] MEDS: APIXABAN 5 MG TABLET PO SCH (09:10)
[2023-08-09] MEDS: lisinopril 2.5 MG TAB PO SCH (09:11)
[2023-08-09 09:37] LABS: Hematocrit (blood only) 49.4 % (42.0-52.0); Mean Corpuscular Hemoglobin 29.5 pg (25.0-34.0); Mean Corpuscular Hgb Conc 34.4 g/dL (32.0-36.0); Mean Corpuscular Volume 85.6 fL (80.0-100.0); Mean Platelet Volume 12.8 fL (9.4-12.4); Platelet Count 187 K/uL (130-400); RDW Coefficient of Variation 13.2 % (11.5-14.5); RDW Standard Deviation 40.7 fL (36.4-46.3); Red Blood Count 5.77 M/uL (4.70-6.10); White Blood Count 7.42 K/ul (4.8-10.8)
[2023-08-09 09:53] LABS: Calcium 9.2 mg/dl (8.6-10.3); Creatinine Clr Calc Pharmacy 133.6 ml/min; Est GFR (African American) 109.1 ml/min; Est GFR (Non-African American) 94.2 ml/min; Magnesium 2.1 mg/dl (1.7-2.4); Potassium 4.1 mmol/L (3.5-5.1)
[2023-08-09 10:01] LABS: ANTI-Xa, UFH(UnfractionatedHep 0.14 IU/ml (0.3-0.7)
--- NOTE | 2023-08-09 10:46 | Electrocardiogram Report ---
Test Reason : Blood Pressure : / mmHG Vent. Rate : 079 BPM Atrial Rate : 079 BPM P-R Int : 184 ms QRS Dur : 096 ms QT Int : 398 ms P-R-T Axes : 051 107 051 degrees QTc Int : 456 ms Normal sinus rhythm Possible Left atrial enlargement Rightward axis Borderline ECG When compared with ECG of 09-AUG-2023 06:11, (unconfirmed) Sinus rhythm has replaced Atrial fibrillation Vent. rate has decreased BY 39 BPM Nonspecific T wave abnormality no longer evident in Inferior leads Confirmed by Nicho Nelson ([id number]) on 08/09/2023 10:46:24 AM Referred By: REFERRED SELF Confirmed By:Lebron Nelson
--- NOTE | 2023-08-09 10:47 | Electrocardiogram Report ---
Test Reason : Blood Pressure : / mmHG Vent. Rate : 118 BPM Atrial Rate : 375 BPM P-R Int : 000 ms QRS Dur : 086 ms QT Int : 336 ms P-R-T Axes : 000 096 037 degrees QTc Int : 470 ms Atrial fibrillation with rapid ventricular response Rightward axis Low voltage QRS Abnormal ECG When compared with ECG of 08-AUG-2023 03:16, No significant change was found Confirmed by Nicho Nelson ([id number]) on 08/09/2023 10:46:58 AM Referred By: REFERRED SELF Confirmed By:Lebron Nelson
--- NOTE | 2023-08-09 17:22 | Hospitalist Progress Note ---
Date of Service August 09, 2023 Assessment & Plan (1) Tachycardia induced cardiomyopathy: (2) Atrial fibrillation with RVR: (3) New onset atrial fibrillation: Plan: Patient is a 48-year-old male with newly diagnosed type 2 diabetes mellitus who presents to the hospital with fatigue and shortness of breath Atrial fibrillation with RVR Tachycardia induced cardiomyopathy Acute on chronic moderately reduced EF Chest x-ray on admission personally reviewed; pulm. vasc. congestion CT abdomen and chest also obtained - no PE - but c/w cardiomegaly, pl. effusion, trace pericard. effusion, anasarca EKG on admission personally reviewed; A-fib with ventricular rate of 176 Echocardiogram shows EF of 45 to 50% with mild global hypokinesis of left ventricle. Status post successful cardioversion 08/08, patient on sinus rhythm. Cardiology on board, on metoprolol succinate 75 mg twice daily. Patient being diuresed, plan to transition to oral diuresis tomorrow. GDMT being titrated, lisinopril 2.5 mg daily added. Continue with Aldactone. Consider outpatient nuclear stress test to rule out ischemic cause. Follow-up with cardiology upon discharge. Nocturnal hypoxia noted, home O2 prescription will be provided, recommend outpatient sleep study. Continue telemetry monitoring. Pt to c/w khurramis upon dc, pt and his family are aware. (4) Diabetes mellitus type 2, noninsulin dependent: Plan: Hgb A1c 10.9% in June 2023 - recent diagnosis - was on metformin; stopped as he reports that he started to have generalized swelling and shortness of breath. rn diabetes educator consulted; plan to start Jardiance 10 mg daily at discharge. Patient reports compliant with diabetic diet. He may need additional agent as outpatient Patient has been refusing subcu insulin while inpatient. Education provided; continues to refuse. Pt doesn't want metformin going forward. Plan Full code DVT prophylaxis eliquis Admission and Anticipated Discharge Date Admission Date: August 06, 2023 Subjective Patient was seen and examined at bedside. Patient was lying in bed, on room air, NAD, resting comfortably. Patient denies any headache or dizziness or chest pain or palpitation. Patient reports eating okay and moving bowels okay. Physical Exam Physical Exam: Constitutional: Alert oriented x 3; not in distress. Respiratory: Bilateral vesicular breath sound Cardiovascular: RRR, no murmur, no edema Vessels: no JVD or carotid bruit Chest: normal inspection of chest Abdomen: Slightly distended. Nontender. Musculoskeletal: no cyanosis or clubbing, extremities motor strength 5/5. trace ble edema Skin: no rashes, warm and dry normal turgor Neurologic: PERRL, EOMI, accommodation nl, no face palsy, no dysarthria CN's II- XI intact bilaterally and moves all extremities Psychiatric: A+Ox3, euthymic affect Results & Data Results & Data Vital Signs (Past 12 Hours) Vital Signs Temp Pulse Pulse Pulse Pulse Resp BP 08/09/23 17:08 08/09/23 15:15 36.7 C 77 18 08/09/23 14:01 81 08/09/23 11:09 37.2 C 80 18 08/09/23 08:46 36.5 C 82 17 08/09/23 08:42 36.5 C 78 18 08/09/23 08:20 74 15 120/91 08/09/23 08:05 78 15 100/80 08/09/23 08:00 124 H 08/09/23 07:50 78 14 125/90 08/09/23 07:10 143 H 18 08/09/23 06:07 67 BP Pulse Ox Pulse Ox O2 Del Method O2 Del Method 08/09/23 17:08 118/80 08/09/23 15:15 118/82 95 Room Air 08/09/23 14:01 08/09/23 11:09 121/79 96 Room Air 08/09/23 08:46 113/88 98 Room Air 08/09/23 08:42 118/89 95 Room Air 08/09/23 08:20 94 Room Air 08/09/23 08:05 94 Room Air 08/09/23 08:00 08/09/23 07:50 98 Room Air 08/09/23 07:10 129/86 92 Room Air 08/09/23 06:07 93 Room Air
[2023-08-10 06:54] LABS: Hematocrit (blood only) 49.1 % (42.0-52.0); Hemoglobin 16.4 g/dl (14.0-18.0); Mean Corpuscular Hemoglobin 29.4 pg (25.0-34.0); Mean Corpuscular Hgb Conc 33.4 g/dL (32.0-36.0); Mean Corpuscular Volume 88.2 fL (80.0-100.0); Mean Platelet Volume 12.1 fL (9.4-12.4); Platelet Count 187 K/uL (130-400); RDW Coefficient of Variation 13.1 % (11.5-14.5); RDW Standard Deviation 42.1 fL (36.4-46.3); Red Blood Count 5.57 M/uL (4.70-6.10); White Blood Count 6.96 K/ul (4.8-10.8)
[2023-08-10 07:10] LABS: BUN Creatinine Ratio 16.5 (10-20); Calcium 9.1 mg/dl (8.6-10.3); Creatinine Clr Calc Pharmacy 120.4 ml/min; Est GFR (African American) 97.7 ml/min; Est GFR (Non-African American) 84.3 ml/min; Magnesium 2.2 mg/dl (1.7-2.4); Phosphorus 4.5 mg/dl (2.5-4.9); Potassium 4.1 mmol/L (3.5-5.1)
--- NOTE | 2023-08-10 07:19 | Cardiology Progress Note ---
Date of Service August 10, 2023 Assessment & Plan (1) Atrial fibrillation with RVR: (2) Acute systolic heart failure: (3) Tachycardia induced cardiomyopathy: Plan IMPRESSION: 48 year old male with new onset AFIB RVR of unknown duration. Mildly reduced LVEF of 45 to 50% with moderate MR. Possibly tachycardic induced. Status post PATRIA guided cardioversion with successful conversion to sinus rhythm, 08/09/2023. PLAN: New onset atrial fibrillation with acute systolic CHF: Continue metoprolol succinate 75 mg twice daily Patietn now examining euvolemic on exam. STOP IV Lasix, Transition to PO Lasix 40 mg daily-- continue at discharge. Needs BMP 1 week post DC. K goal of 4.0 and mag goal of 2.0. Increase spironolactone to 25 mg daily, will reduce KCl supplementation to 20 meq daily. Continue lisinopril 2.5 mg daily for GDMT titration and renal protection in the setting of DM CHADSVASC score of 1 (DM)--continue Eliquis 5 mg twice daily, cost verified with patient/family-- 10$/month Daily standing weight. Strict I&O. 2 g sodium diet. Consider outpatient nuclear stress to rule out ischemic cause, ASCVD risk factors included type 2 DM (uncontrolled), former smoker, and obesity. Will plan on repeat echocardiogram in 3 months as an outpatient to reassess LV systolic function. Inpatient nocturnal pulse ox study positive for nocturnal hypoxemia. Will need formal sleep study as an outpatient. Recommend outpatient sleep medicine referral-orders placed in outpatient chart. Case discussed with Dr. York. No further recommendations from a cardiology standpoint. Okay for discharge. I will arrange follow up in our outpatient clinic in ~4 weeks. I spent a total of 30 minutes on the date of service in preparation, delivery, and documentation of the care provided to the patient excluding any time spent in the performance of separately billed services. MAGGIE Santiago Department of Cardiology, [facility] This chart was completed in part utilizing Speech Voice Recognition Software. Grammatical errors, random word insertions, pronoun errors, and incomplete sentences are an occasional consequence of this system due to software limitations, ambient noise, and hardware issues. Any formal questions or concerns about the content, text, or information contained within the body of this dictation should be directly addressed to the provider for clarification. Admission and Anticipated Discharge Date Admission Date: August 06, 2023 Supervising Physician Co-Signing Physician Notes Patient seen and personally examined. Assessment and plan as outlined by advanced provider above. Care and management discussed and personally endorse Patient clinically improved with large volume diuresis following control heart rate and return to sinus rhythm. Medications adjusted as above to guideline directed therapies. Outpatient management plans as recommended I spent a total of 20 minutes on the date of service in preparation, delivery, and documentation of the care provided to the patient excluding any time spent in the performance of separately billed ser Subjective 48-year-old male who presented with newly observed atrial fibrillation with rapid ventricular response. Exam consistent with congestive heart failure right greater than left. Hypervol emic on exam, started on a modest dose of Lasix 20 mg daily. Echo with mildly reduced EF (45 to 50%) and moderate mitral insufficiency, possibly tachycardic mediated. 08/07/2023 Diltiazem discontinued. Metoprolol succinate 25 mg twice daily started and increased to 50 mg twice daily. IV heparin for stroke prevention in the setting of new A-fib IV Lasix increased to 40 mg daily 08/08/2023 A-fib RVR 150s to 180s, metoprolol succinate increased to 1275 mg twice daily IV heparin for anticoagulation IV Lasix increased to 40 mg twice daily with the addition of Aldactone 12.5 mg daily Nocturnal oximetry report was positive for nocturnal hypoxemia 08/09/2023 Status post PATRIA guided cardioversion. Underwent single 200 J biphasic shock with successful conversion to sinus rhythm. Metoprolol succinate 75 mg twice daily continued IV heparin discontinued in favor of Eliquis 5 mg twice daily GDMT titrated, lisinopril 2.5 mg daily added. Ongoing hypervolemia, diuresed with IV Lasix 40 mg twice daily plus spironolactone 12.5 mg daily 08/10/2023 Telemetry: NSR 70s I/O: -10.5 L (total), -5.6 L (last 24 hours) Weight: 135.1 kg >> 133 >>127.8 kg >> 124.8 kg Labs: Renal function and electrolytes stable. Upon entrance into the room patient resting in bed. No acute concerns. Maintaining NSR on telemetry. Feeling much improved. Back to his baseline. Eager for discharge. No chest pain, shortness of breath, palpitations, dizziness, syncope or near syncope. No orthopnea. No lower extremity edema. No Abdominal distentension. No fever, chills, cough, hematochezia, melena, or hemoptysis. Review of Systems Review of Systems: All systems reviewed & are unremarkable except as noted in HPI & below Physical Exam Constitutional: WD/WN, vitals as above + obese; no acute distress Neck: normal visual inspection and trachea midline Respiratory: normal respiratory effort; no respiratory distress and no cough Auscultation: no rales, no rhonchi and no wheezes Cardiovascular: Rate/Rhythm: regular rate and regular rhythm Heart Sounds: normal S1, normal S2 and + murmur (+1/6 systolic murmur ) Vessels: no JVD Extremities: no pedal edema and no edema Gastrointestinal (Abdomen): Inspection/Auscultation: abdomen not distended Percussion/Palpation: abdomen soft; abdomen nontender Skin: no rashes, warm and dry Neurologic: PERRL, EOMI, accommodation nl, no face palsy, no dysarthria Psychiatric: A+Ox3, euthymic affect Results & Data Vital Signs (Past 12 Hours) Vital Signs Temp Pulse Pulse Resp BP Pulse Ox O2 Del Method 08/10/23 02:53 36.7 C 72 18 121/82 96 Room Air 08/09/23 22:11 36.8 C 81 18 125/84 97 Room Air 08/09/23 21:59 79 08/09/23 19:30 Room Air 08/09/23 19:28 36.8 C 80 18 113/79 94 Room Air Laboratory Results CBC 08/09/23 08/10/23 Range/Units 09:18 06:36 WBC 7.42 6.96 (4.8-10.8) K/ul RBC 5.77 5.57 (4.70-6.10) M/uL Hgb 17.0 16.4 (14.0-18.0) g/dl Hct 49.4 49.1 (42.0-52.0) % Plt Count 187 187 (130-400) K/uL Comprehensive Metabolic Panel 08/09/23 08/10/23 Range/Units 09:18 06:36 Sodium 138 137 (136-145) mmol/L Potassium 4.1 4.1 (3.5-5.1) mmol/L Chloride 106 105 (98-107) mmol/L Carbon Dioxide 24 24 (21-32) mmol/L BUN 16 17 (6-23) mg/dl Creatinine 0.94 1.03 (0.6-1.4) mg/dl Glucose 145 H 181 H (70-99(Fasting)) mg/dl Calcium 9.2 9.1 (8.6-10.3) mg/dl Intake and Output 08/09/23 08/10/23 08/10/23 22:59 06:59 14:59 Intake Total 500 / 1427.8 500 / 1427.8 Output Total 1400 / 3375 650 / 3375 Balance -900 / -1947.2 -150 / -1947.2 Intake: Oral 500 / 1000 500 / 1000 Output: Urine 1400 / 3375 650 / 3375 Other: Weight 124.8 kg Weight Measurement Method Standing Scale
[2023-08-10] MEDS: SPIRONOLACTONE 25 MG TAB PO SCH (08:44)
[2023-08-10] MEDS: POTASSIUM CHLORIDE CRTAB 20 MEQ TABCR PO SCH (08:44)
[2023-08-10] MEDS: FUROSEMIDE 40 MG TAB PO SCH (08:45)
--- NOTE | 2023-08-10 09:14 | Electrocardiogram Report ---
Test Reason : Blood Pressure : / mmHG Vent. Rate : 079 BPM Atrial Rate : 079 BPM P-R Int : 186 ms QRS Dur : 092 ms QT Int : 430 ms P-R-T Axes : 053 100 077 degrees QTc Int : 493 ms Normal sinus rhythm Possible Left atrial enlargement Rightward axis Prolonged QT Abnormal ECG When compared with ECG of 09-AUG-2023 07:47, No significant change was found Confirmed by Nicho Nelson ([id number]) on 08/10/2023 9:14:24 AM Referred By: REFERRED SELF Confirmed By:Lebron Nelson
--- NOTE | 2023-08-10 12:03 | Discharge Summary ---
Date of Service August 10, 2023 Admission HPI Per Admitting Provider 48 M w/ hx of DM type 2 (Hgb A1c 10.9 % in June 2023), was started recently on metformin, who now presents with abdominal distention, ankle edema, shortness of breath on exertion and found to be in Afib w/ RVR in the ED w/ HR in 180s. Pt went to see his PCP on 07/10 when he complained about some numbness in his feet. At that time Hgb A1c was obtained and found elevated - 10.9%, and he was started on metformin 500 mg daily. He then followed up with diabetic pharmacist and his dose was increased to 2,000 mg a day. Prior to that, pt was not really seeing / following much with primary care physician. Pt feels that he started to gain weight and especially around his waist since being on metformin. He says that he never had ankle edema until now. He also noticed dyspnea on exertion but never had chest pain or palpitations. He quit smoking after being diagnosed with diabetes. He contacted his pcp and initially they decreased the dose of metformin and then completely stopped it. In the ED , pt was found to be in Afib w/ RVR, w/ HR 180s and initially IVF was given. he was also given iv metoprolol 5 mg x3 without appropriate HR control and therefore was started on dilt drip. CXR c/w pulm. vasc. congestion, CTA chest and CT abdomen/pelvis also obtained - c/w cardiomegaly, pl. effusion, anasarca. Pt was given small dose lasix (as he is lasix naive). He was started on iv heparin. Currently HR improved. Pt is sitting up in bed in NAD, he is breathing comfortably at rest on RA. He is awake, alert oriented and answers appropriately. Says his usual weight was 256 lbs but now is 286 lbs (per his scale), and he can not really get his pants around his waist anymore, even though he is very careful about what he is eating. He denies any chest pain, palpitations, dizziness or lightheadedness. he is bothered by abdominal distention and ankle edema. Pt's is present at the bedside and helps provide the history. Admission Exam Per Admitting Provider Constitutional: obese M in NAD Eyes: PERRL, conjunctivae normal, anicteric sclerae ENMT: external ear and nose normal, oropharynx normal Neck: trachea midline, no thyromegaly Respiratory: normal resp. effort, + diffuse crackles shan. at bases, no wheezing Cardiovascular: tachycardic, irregular Chest (Breasts): Chest: normal inspection of chest Gastrointestinal (Abdomen): obese, soft, distended, nontender, + bowel sounds Musculoskeletal: no cyanosis or clubbing, extremities motor strength 5/5 Skin: no rashes, warm and dry Neurologic: patellar DTR's 2+ bilat, sensation intact Psychiatric: A+Ox3, euthymic affect Lymphatic: + ankle edema Principal Diagnosis Atrial fibrillation with rapid ventricular rate Discharge Exam Constitutional: Alert oriented x 3; not in distress. Respiratory: Bilateral vesicular breath sound Cardiovascular: RRR, no murmur, no edema Vessels: no JVD or carotid bruit Chest: normal inspection of chest Abdomen: Slightly distended. Nontender. Musculoskeletal: no cyanosis or clubbing, extremities motor strength 5/5. trace ble edema Skin: no rashes, warm and dry normal turgor Neurologic: PERRL, EOMI, accommodation nl, no face palsy, no dysarthria CN's II- XI intact bilaterally and moves all extremities Psychiatric: A+Ox3, euthymic affect Discharge Data Allergies Allergy/AdvReac Type Severity Reaction Status Date / Time No Known Allergies Allergy Unverified 08/06/23 17:08 Consultations 08/06/23 17:20 ED Decision to Admit Stat 08/06/23 17:36 Consult Cardiology Routine 08/08/23 12:33 Consult Anesthesiology Routine Procedures Performed Operation Date: 08/09/23 07:30 Actual Procedures p Echo Transesophageal - Liban York MD s Cardioversion - Liban York MD s Echo Doppler Complete - Liban York MD s Echo Color Flow - Liban York MD Ordered Studies 08/06/23 13:28 CT abd pelvis IV con only Stat CT angio chest PE protocol Stat Hospital Course (1) Tachycardia induced cardiomyopathy: (2) Atrial fibrillation with RVR: (3) New onset atrial fibrillation: Patient is a 48-year-old male with newly diagnosed type 2 diabetes mellitus who presents to the hospital with fatigue and shortness of breath. He was managed for the following: Atrial fibrillation with RVR Tachycardia induced cardiomyopathy Acute on chronic moderately reduced EF Chest x-ray on admission personally reviewed; pulm. vasc. congestion CT abdomen and chest also obtained - no PE - but c/w cardiomegaly, pl. effusion, trace pericard. effusion, anasarca EKG on admission personally reviewed; A-fib with ventricular rate of 176 Echocardiogram shows EF of 45 to 50% with mild global hypokinesis of left ventricle. Status post successful cardioversion 08/08, patient on sinus rhythm. Cardiology on board, on metoprolol succinate 75 mg twice daily. Aldactone/lisinopril/Lasix has been added. Consider outpatient nuclear stress test to rule out ischemic cause. Follow-up with cardiology upon discharge. Nocturnal hypoxia noted, home O2 prescription will be provided, recommend outpatient sleep study. Patient has been made aware. Patient to continue with Elijamieis on discharge. Patient to follow-up with PCP within a week time upon discharge. Patient is hemodynamically stable. (4) Diabetes mellitus type 2, noninsulin dependent: Hgb A1c 10.9% in June 2023 - recent diagnosis - was on metformin; stopped as he reports that he started to have generalized swelling and shortness of breath. music educator consulted; start Jardiance 10 mg daily at discharge. Patient reports compliant with diabetic diet. He may need additional agent as outpatient Patient has been refusing subcu insulin while inpatient. Education provided; continues to refuse. Pt doesn't want metformin going forward. Plan Full code DVT prophylaxis neetu Patient is being discharged to home with following instruction at the point of discharge: Follow-up with your primary care physician within a week time and likely you will need labs CBC/CMP/magnesium/phosphorus. You were evaluated for atrial fibrillation with rapid ventricular response and acute on chronic heart failure with reduced ejection fraction. Your cardiac medications has been optimized, take your medications as prescribed. Follow-up with cardiology in 2 to 4 weeks time upon discharge, possibly you will need outpatient nuclear stress test. You will benefit from outpatient sleep study, coordinate with your PCP office to set up the test. For your diabetes, since you do not want to use metformin and insulin, you will be discharged on Jardiance. Follow-up with your diabetic clinic or PCP closely for long-term monitoring of your diabetes. Encourage lifestyle changes including daily exercise regimen, low-sodium/heart healthy diet, weight loss. Take your medications as prescribed. Please make sure that you are able to get your medications today by calling your pharmacy before you leave the hospital so that your treatment continuity is not broken. Home Health Attestation I certify that this patient is under my care and that I, or a physicians hygiene assistant working with me, had a face to-face encounter that meets the home health [id number] encounter requirements with this patient. The encounter with the patient was in whole, or in part, for the following medical condition, which is the primary reason for home health care (list medical condition): I certify that, based on my findings, the following services are medically necessary home health services: My clinical findings support the need for the above services because: Further, I certify that my clinical findings support that this patient is homebound (i.e. absences from home require considerable and taxing effort and are for medical reasons or pentec[employer] services or infrequently or of short duration when for other reasons) because: Certification for Home Health Services: Based on the above findings, I certify that this patient is confined to the home and needs intermittent longterm care, physical therapy and/or speech therapy or continues to need occupational therapy. The patient is under my care, and I have initiated the establishment of the plan of care. This patient will be followed by a physician who will periodically review the plan of care. Total Time Total Time Spent Total Time Spent (In Minutes): 45 Discharge Plan Discharge Items Patient Disposition: Home - Self-Care Reason For Visit: AFIB RVR Discharge Diagnosis: Atrial fibrillation with rapid ventricular rate Activity: Resume your previous activity Non-emergency contact: Primary Care Provider Call non-emergency contact if: you have any medication questions, your symptoms worsen and your temperature is above 101 Follow-up/Referrals: Liban York MD [Physician] - (Date & Time 09/06/2023 10:00 AM Provider Liban York MD Department Cardiology, [facility] ) Kristopher Lynch PA-C [Primary Care Provider] - (Date & Time 08/15/2023 2:40 PM Provider Kristopher Lynch PA-C Department [facility] ) Diet: Carb Consistent or DM2, Heart Healthy and Low Sodium (2gm) Fluids: 2000ml (8 cups) Addtl Attending Provider Instructions: Follow-up with your primary care physician within a week time and likely you will need labs CBC/CMP/magnesium/phosphorus. You were evaluated for atrial fibrillation with rapid ventricular response and acute on chronic heart failure with reduced ejection fraction. Your cardiac medications has been optimized, take your medications as prescribed. Follow-up with cardiology in 2 to 4 weeks time upon discharge, possibly you will need outpatient nuclear stress test. You will benefit from outpatient sleep study, coordinate with your PCP office to set up the test. For your diabetes, since you do not want to use metformin and insulin, you will be discharged on Jardiance. Follow-up with your diabetic clinic or PCP closely for long-term monitoring of your diabetes. Encourage lifestyle changes including daily exercise regimen, low-sodium/heart healthy diet, weight loss. Take your medications as prescribed. Please make sure that you are able to get your medications today by calling your pharmacy before you leave the hospital so that your treatment continuity is not broken. Pending Studies at Discharge: No Stand-Alone Forms: [facility] [employer], Smoking Cessation Medications and DC Order Prescriptions: New Eliquis 5 mg Tablet 5 mg PO BID Qty: 60 0RF lisinopril 2.5 mg Tablet 2.5 mg PO QAM Qty: 30 0RF metoprolol succinate 25 mg Tablet Extended Release 24 Hr 75 mg PO BID Qty: 180 0RF spironolactone 25 mg Tablet 25 mg PO DAILY Qty: 30 0RF furosemide 40 mg Tablet 40 mg PO QAM Qty: 30 0RF potassium chloride 20 mEq Tablet,Er Particles/Crystals 20 meq PO QAM Qty: 30 0RF Jardiance 10 mg tablet 10 mg PO DAILY Qty: 30 0RF Discontinued metformin 500 mg tablet extended release 24 hr 50 mg PO QAM Discharge Orders: Discharge Order- CHF (Routine); Ordered 08/10/23 Ordered By: Sunita Darby Admission Data Admit Date/Time: 08/06/23 18:14 Attending Provider: Sunita Darby Admit Provider: Hector Porter Primary Care Provider: Kristopher Lynch Other Providers: Hector Porter; Duncan Levin; Martha Rene; Leatha Ovalles; Val Baires; Belle Mckeon; Dario Conti; Nav Chavez; Denton Pollard; Jens Zavaleta; Grecia Zavaleta; Rene Antonio; Odalys Egan; Rocky Jaramillo; Caden Cottrell; Lowell Moraes; Dalton Rosales; Naheed Marc E; Yang Noel A; Do Noel; Zen Bernstein E; Lesly Echols; Ab Patiño.; Madison Romeo; Yuliet Jose; Lauro Shah; Judit Kc A; Amanda Romano A; Talya Gonzáles; Skye Hoang; Evens Hoang V; Robert Peña; Leatha Sands; Jw Tabor; Sammie Sullivan; Evens Lion; Marcelino Pastrana; Delmar Cho; Naomy Arreola; Angie Gupta; Evens Calderon; Govind Matthews; Cori Reyes; Maurice Hernandez; Kirsten Muro; Ashley Rodas; Ted Busch; Ulices Rosales; Nati Chavez; Jayde Cha; Hipolito Mcelroy; Nicho Yates; Draio Farr Jr; Arin Barrios; Carlita Mercado A.; Yaima De Jesus; Laruo Wooten; Jens Hernández.; Shirlene Martinez S.; Carlita Christina A.; Ishmael Luna; Srinivasa Turk; Deng Galo; Sathish Cardona; Ministerio Padgett; Niya Goins; Carine De La Garza; Ellyn Sharp
== END 2023-08-10 13:02 | disposition home or self-care (01) | DRG 308 ==
LOC: ED 12:28 → SUATTDRO 18:14 → 2S 18:14